=== PATIENT | male | born 1980 | race Caucasian/White ===

== ENCOUNTER 2020-01-09 18:29 | Observation (INO) | payer OTHER, SELFPAY ==
[2020-01-09] VITALS (11 sets, daily range): BP systolic 124–140; BP diastolic 76–93; PULSE 63–92; RESP 16–17; TEMP 36.3–37.2; O2SAT 95–100; BMI 26.1; BMI 25.8
--- NOTE | 2020-01-09 | APP_PTH ---
PATIENT: RENY DURBIN LOC: MS3 U#:[id number] AGE/SX: 39/M ROOM: MT314 RE01/09/[address]: Dr. Harriet Marley MD : 1980 BED: 1 DIS: 01/10/2020 SPEC #: [id number] RECD: 01/12/20 07:37 STATUS: LUCERO REQ #: [id number] AMIRA: 01/09/20 00:[address]: Harriet Marley DEPT: SURGICAL PATHOLOGY RECD BY: Noam Small ENTERED: 01/12/20 09:47 SP TYPE: APPENDIX OTHR DR: Dr. Mansoor Basurto III, MD Tissues: Appendix, NOS Procedures: Surgery Specimen Level III HEADER OPERATION: Laparoscopic appendectomy PRE-OP DIAGNOSIS: Appendicitis TISSUE SUBMITTED: Appendix MICROSCOPIC DIAGNOSIS Appendix, appendectomy: Acute appendicitis. AM:chen 01/13/20 MICROSCOPIC DESCRIPTION Slides are reviewed. GROSS DESCRIPTION Received is one container labeled with the patient's name and designated appendix. The specimen consists of an appendix measuring 7 cm in length and up to 1 cm in diameter. The serosa is congested. No obvious perforation is identified. The lumen is filled with fecal material. No fecalith is identified. Station Baggage Agent sections are submitted in one cassette. / AM:chen 01/12/20 TC:2 CPT: 45564
--- NOTE | 2020-01-09 18:51 | ED.VIS.GEN ---
History of Present Illness Chief Complaint: Abd Pain Informant: Patient Onset: Today Narrative: Patient states that today just before noon he began to have a right lower quadrant abdominal pain. Then after lunch around mid afternoon he developed sharp pains pinching-like in the upper abdomen. No nausea or vomiting. He does not unsure if he had a bowel movement today. The right lower quadrant pain has been constant and more severe than expected. He has had a similar pain for a few hours once a month for the past couple months. It always go away. It was not associated with food. He did note some associated testicular pain at the time. He has not had any prior abdominal surgeries. 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 No fever or rashes. No history of kidney stones. Past Medical History - Allergies and Home Meds Allergies/Adverse Reactions: Allergies Iodinated Contrast Media [CONTRASTS] Allergy (Verified 01/09/20 18:30) Hives Smoking Status: Never smoker Review of Systems General: Denies: Chills, Fever, Sweats Eyes: Denies: Visual changes - bilaterally, Diplopia ENT: Denies: Rhinorrhea, Sore throat Cardiovascular: Denies: Chest pain, Palpitations Respiratory: Denies: Dyspnea, Cough, Dyspnea on exertion Gastrointestinal: Reports: Abdominal pain. Denies: Nausea, Vomiting, Diarrhea, Melena, Hematochezia Genitourinary: Denies: Dysuria, Hematuria, Frequency Musculoskeletal: Denies: Back pain, Extremity Pain Skin: Denies: Rash, Wounds Neurological: Denies: Headache, Weakness, Numbness Physical Exam Vital Signs/Narrative: Vital Signs Temp Pulse Resp BP Pulse Ox 01/09/20 18:30 98.1 F 69 17 138/93 H 98 Inital Vital Signs reviewed: Yes General: Well nourished, Well developed, No Acute Distress Head: Normocephalic, Atraumatic Eyes: Perrl, EOMI ENT: Moist mucous membranes, No rhinorrhea Neck: Supple, Nontender Cardiovascular: Regular rate, Regular rhythm, No murmurs Respiratory: No distress, CTA bilaterally, Chest nontender Abdomen: Soft, Nondistended, Normal bowel sounds, Tender - Patient has tenderness to palpation in the low right lower quadrant. No guarding or rebound. Normal bowel sounds.. Negative for: Guarding, Rebound tenderness Back: Nontender, Normal Inspection Extremities: Nontender, No edema Skin: Normal color, No rash Neurological: Alert, Oriented x3, Cranial nerves II-XII grossly intact, Normal Strength, Normal Sensation Psychological: Normal affect, Normal Mood Diagnostic/Tx/Re-eval Laboratory Last Values WBC 12.8 K/mm3 (4.4-11.0) H 01/09/20 18:50 RBC 4.86 M/mm3 (4.6-6.2) 01/09/20 18:50 Hgb 15.1 g/dL (13.0-16.5) 01/09/20 18:50 Hct 45.3 % (40-54) 01/09/20 18:50 MCV 93.2 fL (80-94) 01/09/20 18:50 MCH 31.1 pg (27.0-32.0) 01/09/20 18:50 MCHC 33.3 g/dL (32-36) 01/09/20 18:50 RDW Std Deviation 42.7 fl (35.1-43.9) 01/09/20 18:50 RDW Coeff of Jean-Pierre 12.6 % (11.6-14.6) 01/09/20 18:50 Plt Count 193 K/mm3 (150-450) 01/09/20 18:50 MPV 11.9 fl (6.2-12.0) 01/09/20 18:50 Immature Gran % (Auto) 0.200 % (0.0-0.9) 01/09/20 18:50 Neut % (Auto) 74.1 % (47-70) H 01/09/20 18:50 Lymph % (Auto) 16.1 % (19-41) L 01/09/20 18:50 [place] % (Auto) 6.2 % (0-10) 01/09/20 18:50 Eos % (Auto) 2.6 % (0-5) 01/09/20 18:50 Baso % (Auto) 0.8 % (0-1) 01/09/20 18:50 Absolute Neuts (auto) 9.5 X10^3/uL (2.0-7.7) H 01/09/20 18:50 Absolute Lymphs (auto) 2.06 X10^3/uL (0.83-4.51) 01/09/20 18:50 Nucleated RBC % 0 % (0-5) 01/09/20 18:50 Sodium 140 mmol/L (136-145) 01/09/20 18:50 Potassium 4.1 mmol/L (3.5-5.1) 01/09/20 18:50 Chloride 105 mmol/L (98-107) 01/09/20 18:50 Carbon Dioxide 29.0 mmol/L (21.0-32.0) 01/09/20 18:50 Anion Gap 6 (5-15) 01/09/20 18:50 BUN 15 mg/dL (7-18) 01/09/20 18:50 Creatinine 0.89 mg/dL (0.70-1.30) 01/09/20 18:50 Estim Creat Clear Calc 115.06 ml/min 01/09/20 18:50 Est GFR (MDRD) Af Amer 122 mL/min (>60) 01/09/20 18:50 Est GFR (MDRD) Non-Af 101 mL/min (>60) 01/09/20 18:50 BUN/Creatinine Ratio 16.9 RATIO (10-20) 01/09/20 18:50 Glucose 95 mg/dL (74-106) 01/09/20 18:50 Calcium 10.1 mg/dL (8.5-10.1) 01/09/20 18:50 Total Bilirubin 0.50 mg/dL (0.20-1.00) 01/09/20 18:50 AST 19 U/L (15-37) 01/09/20 18:50 ALT 47 U/L (16-61) 01/09/20 18:50 Alkaline Phosphatase 99 U/L (45-117) 01/09/20 18:50 Total Protein 8.1 g/dL (6.4-8.2) 01/09/20 18:50 Albumin 4.4 g/dL (3.2-5.0) 01/09/20 18:50 Globulin 3.7 g/dL (2.2-4.2) 01/09/20 18:50 Albumin/Globulin Ratio 1.2 RATIO (0.9-2.4) 01/09/20 18:50 Lipase 60 U/L (73-393) L 01/09/20 18:50 Urine Color Yellow (Yellow) 01/09/20 19:50 Urine Clarity Clear (Clear) 01/09/20 19:50 Urine pH 6.0 (5.0 - 8.0) 01/09/20 19:50 Ur Specific [place] 1.020 (1.002-1.030) 01/09/20 19:50 Urine Protein Negative mg/dl (Negative) 01/09/20 19:50 Urine Glucose (UA) Normal mg/dl (Normal) 01/09/20 19:50 Urine Ketones Negative mg/dl (Negative) 01/09/20 19:50 Urine Occult Blood Negative /ul (Negative) 01/09/20 19:50 Urine Nitrite Negative (Negative) 01/09/20 19:50 Urine Bilirubin Negative mg/dL (Negative) 01/09/20 19:50 Urine Urobilinogen Normal mg/dl (Normal) 01/09/20 19:50 Ur Leukocyte Esterase Negative /ul (Negative) 01/09/20 19:50 Clinical Impression(s) from Imaging Studies Abdomen/Pelvis CT 01/09/20 19:32 IMPRESSION: Normal unenhanced CT of the abdomen and pelvis. Electronically Signed: Kita Jimenez, at 20:00 EDT Tel , Service support , ADDENDUM: 01/09/202024 - Medical Decision Making He received morphine Zofran and IV fluids. He is kept n.p.o. Due to an contrast allergy, IV contrast was not used. CT is consistent with acute appendicitis. The patient received Zosyn and Dr. Marley was contacted. She will be up to evaluate the patient ED Disposition - Plan for ED Patient: Disposition: Acute Care Hospital [facility] Diagnosis: Acute appendicitis
[2020-01-09 19:08] LABS: Absolute Lymphocyte Count 2.06 X10^3/uL (0.83-4.51); Absolute Neutrophil Count 9.5 X10^3/uL (2.0-7.7); Basophil% 0.8 % (0-1); Eosinophil# 0.33 X10^3/uL; Eosinophils% 2.6 % (0-5); Hematocrit 45.3 % (40-54); Hemoglobin 15.1 g/dL (13.0-16.5); Lymphocyte # 2.06 X10^3/ul (4.0); Lymphocyte % 16.1 % (19-41); Mean Corp Hgb Conc 33.3 g/dL (32-36); Mean Corpuscular Hgb 31.1 pg (27.0-32.0); Mean Corpuscular Volume 93.2 fL (80-94); Mean Platelet Vol. 11.9 fl (6.2-12.0); Monocyte# 0.79 X10^3/uL; Monocyte% 6.2 % (0-10); NRBC Flagged by Analyzer 0 % (0-5); Neutrophil # 9.52 X10^3/uL (2.7-7.7); Neutrophil % 74.1 % (47-70); Platelet Count 193 K/mm3 (150-450); RBC Distribution Width CV 12.6 % (11.6-14.6); RBC Distribution Width SD 42.7 fl (35.1-43.9); Red Blood Count 4.86 M/mm3 (4.6-6.2); White Blood Count 12.8 K/mm3 (4.4-11.0)
[2020-01-09] MEDS: 0.9% Normal Saline 1,000 ML 125 ML IV (19:15)
[2020-01-09] MEDS: Ondansetron 4 MG/2 ML Vial IV (19:15)
[2020-01-09] MEDS: Morphine 2 MG/ML Syringe IV (19:15)
--- NOTE | 2020-01-09 19:32 | CT_ITS ---
STUDY: CT ABDOMEN AND PELVIS WITHOUT CONTRAST REASON FOR EXAM: Male, 39 years old. Right sided abdominal pain RADIATION DOSAGE (If Supplied By Facility): CTDIvol = ( 7.07 ) mGy, DLP = ( 384.97 ) mGycm TECHNIQUE: Transaxial images were obtained from the dome of the diaphragm to the symphysis pubis without oral contrast, and without intravenous contrast. Sagittal and coronal images were reconstructed. Individualized dose optimization techniques were used for this CT. COMPARISON: None. FINDINGS: The visualized lung bases are unremarkable. The visualized portions of the heart are within normal limits. Normal liver. Normal gallbladder and extrahepatic biliary system. Normal spleen. Normal pancreas. Normal bilateral adrenal glands. Normal right kidney. Normal left kidney. Normal visualized stomach. Normal small intestine. Normal colon. The appendix is visualized and appears normal. Normal abdominal aorta. Normal inferior vena cava. Normal retroperitoneum. Normal urinary bladder. Normal abdominal wall. There are degenerative changes in multiple endplates. CT/Abdomen/Pelvis without Cont IMPRESSION: Normal unenhanced CT of the abdomen and pelvis. Electronically Signed: Kita Jimenez, at 20:00 EDT Tel , Service support ,
[2020-01-09 19:38] LABS: ALB/GLOB Ratio 1.2 RATIO (0.9-2.4); AST(SGOT) 19 U/L (15-37); Alanine Aminotransfer ALT/SGPT 47 U/L (16-61); Albumin, Serum 4.4 g/dL (3.2-5.0); Alkaline Phosphatase 99 U/L (45-117); Anion Gap 6 (5-15); BUN 15 mg/dL (7-18); BUN/Creat Ratio 16.9 RATIO (10-20); Calcium,Total 10.1 mg/dL (8.5-10.1); Chloride 105 mmol/L (98-107); Creatinine, Serum 0.89 mg/dL (0.70-1.30); EST Glomerular Filtration Rate 101 mL/min (>60); Est Glom Filt Rate - Afr Amer 122 mL/min (>60); Estimated Creatinine Clearance 115.06 ml/min; Globulin 3.7 g/dL (2.2-4.2); Glucose 95 mg/dL (74-106); Lipase 60 U/L (73-393); Potassium 4.1 mmol/L (3.5-5.1); Protein, Total 8.1 g/dL (6.4-8.2); Sodium Level 140 mmol/L (136-145)
[2020-01-09 19:55] LABS: Mucous, Urine 0 SEEN /hpf (<or=2+); Red Blood Cells-Urine 0 SEEN /hpf (0-5); Squamous Epithelial Cells - UA 0 SEEN /hpf (0-5); White Blood Cells 0 SEEN /hpf (0-5)
[2020-01-09 20:07] LABS: Color, Urine Yellow (Yellow); Glucose, Dipstick Normal (Normal); Ketone-Dipstick Negative (Negative); Leukocyte Esterase-Dipstick Negative /ul (Negative); Nitrite-Dipstick Negative (Negative); Occult Blood-Urine Negative /ul (Negative); Protein-Dipstick Negative (Negative); Urine Bilirubin Dipstick Negative (Negative); Urine Clarity Clear (Clear); Urine Urobilinogen Normal (Normal)
[2020-01-09 20:24] LABS: Bacteria RARE /hpf (None Seen)
--- NOTE | 2020-01-09 21:02 | PCM.HP.BLA ---
History and Physical Date of Admission: 01/09/20 Chief Complaint: abdominal pain History of Present Illness: 39 y/o otherwise healthy WM presents with RLQ abdominal pain. He states that he has had this in the past, but the pain resolved spontaneously. This present pain did not and therefore patient presented to ED. This present pain began around noon today. Found to have WBC of 12.8K with left shift of differential. CT scan findings of appendicitis without perforation. Past Medical History: elevated cholesterol Past Surgical History: Tonsillectomy jaw surgery Medications: simvastatin allergy medication MVI Allergies: iodinated contrast media Social history: TOB use denies Review of Systems: General - denies fevers Cardiovascular denies chest pain, denies history of heart attack Pulmonary denies shortness of breath, denies coughing up blood Gastrointestinal as per HPI, denies hematemesis Neurological denies seizures, denies history of stroke Genitourinary denies burning with urination, denies blood in urine Hematological denies spontaneous/prolonged bleeding Skin denies open non healing wounds Musculoskeletal no new muscle/joint pain Endocrine denies diabetes Psychological denies hallucinations Physical examination: Vital signs Temp 98.9F HR 68 BP 135/88 RR 16 General WD/WN WM in no apparent distress, alert and oriented, not septic appearing HEENT Normocephalic. EOM intact with sclera clear and no icterus noted. Wearing glasses. Neck is supple with no jugular venous distention noted. Trachea is midline. Lungs no labored breathing noted, such as retractions. No cough heard. Heart regular rate. Abdomen soft but tender in the right lower quadrant with rebound tenderness, hypoactive bowel sounds Extremities no calf tenderness noted. No pitting edema noted. Genitourinary/Rectal deferred Skin normal skin integrity. Neurological non focal. Psychological normal affect, patient is calm and appropriate IMPRESSION: appendicitis by CT scan leukocytosis DISCUSSION/PLAN: I have discussed the above with the patient and his who is present with him I have offered the patient the procedure of laparoscopic appendectomy. I have explained the procedure to the patient. I have counseled the patient as to the risks of the procedure, including but not limited to: infection, bleeding, injury to any blood vessels/nerves, scar tissue, injury to any intrabdominal organs, injury to kidney/ureters, injury to bowel/bladder, intraabdominal abscess/bleeding, hernias at incisional sites, wound infections, possible open procedure, complications of anesthesia, postoperative pneumonia/cardiac problems/blood clots etc. the patient understands. Given the present COVID crisis, I have also counseled patient that he would be at increased risk for elvira COVID or having COVID related complications, he understands. He wishes to proceed. I have answered all questions to the patient?s satisfaction and the patient has no further questions.
[2020-01-09] MEDS: Lactated Ringers 1,000 ML 75 ML IV (21:05)
--- NOTE | 2020-01-09 21:39 | ED.RN ---
report given to OR nurse [place]. They would like COVID swab done, not wait for results and bring pt to OR.
[2020-01-09] MEDS: Bupiv/Epi 0.25% 30 ML Vial (22:44)
--- NOTE | 2020-01-09 22:46 | PCM.OPRPT ---
Report of Operation Date of Procedure: 01/09/20 Pre-Operative Diagnosis: acute appendicitis Post-Operative Diagnosis: same Surgery/Procedure Performed:: laparoscopic appendectomy Description of Surgical Findings:: acute appendicitis - not ruptured, cloudy fluid in pelvis - irrigated and aspirated out Type of Anesthesia:: General Anesthesiologist: Alejandra Owens Specimen's removed: appendix Estimated Blood Loss (mL): < 5 ml Fluids Replaced: 1000 ml RL Description of Procedure: After informed consent was obtained, the patient was brought into the Operating Room. Appropriate time out protocol was followed. He was then placed in the supine position on the operating table. The patient was then placed under general anesthesia. The patient?s abdomen was then prepped with a sterile surgical skin preparation and sterile surgical drapes were placed. The infraumbilical skin fold was grasped with penetrating clamps and the skin and subcutaneous tissues were infiltrated with 0.25% marcaine with epinephrine. A skin incision was then made. A Veress needle was then inserted into the intraabdominal cavity and checked to be in the proper position with a normal saline drop test. A CO2 pneumoperitoneum was then created. Once this was achieved, the Veress needle was removed and a 5 mm trocar was placed in its stead. A 5 mm laparoscope was then inserted into the trocar. Careful examination of the intraabdominal contents was then done. There was no evidence of injury to any internal organs from placement of the Veress needle or the trocar. Under direct visualization, a 12mm suprapubic trocar and a 5mm left lower quadrant trocar was then placed into the intraabdominal cavity. The skin and subcutaneous tissues at these sites were first infiltrated with 0.25% marcaine with epinephrine. Attention was then directed to the right lower quadrant. The appendix was visualized. The tip of the appendix was adherent to the anterior abdominal wall. There were inflammatory changes of the appendix consistent with appendicitis. There was no evidence of perforation. The mesentery of the appendix was taken down by cauterizing the tissue from the free edge to the base of the appendix with the Harmonic scalpel. Once the base of the appendix was freed of surrounding tissues, then the linear gastrointestinal stapling device was brought into the abdominal cavity via the 12mm port and placed across the base of the appendix. The stapling device was fired, thus stapling across the base of the appendix and transecting it simultaneously. The appendix was then placed in an Endobag and this was brought out through the suprapubic trocar. The appendix was then forwarded to Pathology for analysis. The appendiceal stump was carefully examined. There was no evidence of any active bleeding or fecal leakage. Surgicel was placed on the staple line for minimal oozing. The surrounding tissues were also examined and there was no evidence of any active bleeding or fecal/bile leakage. There was cloudy fluid in the pelvis. This was aspirated out and the area irrigated and all irrigant aspirated out. The intraabdominal cavity was examined and there was no evidence of further inflammation or tissue abnormality. There was no evidence of any peritoneal fluid. The site of the staple line of the appendiceal stump was examined and no bleeding was noted. The CO2 pneumoperitoneum was released and all trocars were removed intact. The suprapubic fascia was reapproximated with a figure-of-8 vicryl suture. All skin incisions were reapproximated with monocryl suture. Cavilon and steristrips were applied to reinforce skin closure and proper sterile dressings were placed. The patient was then extubated and brought to the Recovery Room in stable condition. - Complications none noted - Admit VTE Documentation VTE Present on Admission: Yes VTE Mechan Device Prophylaxis: SCD's
--- NOTE | 2020-01-09 22:48 | DCINST_ITS ---
Discharge Diet: No Restrictions - avoid carbonated beverages drink plenty of fluids Discharge Activity: Return to Normal Activity, May not drive while taking narcotic pain medications. Lifting Restrictions: no lifting greater than 20 pounds for two weeks Call your doctor if your incision/area has: Continuous Slow Oozing, Foul Smelling Discharge Call your doctor if you observe: Fever of 101 or Higher Additional Dressing/Incision Instructions:: Leave dressings in place. may get wet in shower. do not soak - no tub baths/swimming Medications to take at Discharge Fexofenadine HCl [Sharon Allergy] 60 mg PO DAILY 01/09/20 Multivitamin [Daily Multiple Vitamin] 1 ea PO DAILY 01/09/20 Simvastatin [Zocor] 40 mg PO QHS 01/09/20 Allergies/Adverse Reactions: Allergies Iodinated Contrast Media [CONTRASTS] Allergy (Verified 01/09/20 18:30) Hives Primary Care Physician: Mansoor Basurto III, MD [Primary Care Provider] - Test Results: Test results from this visit will be discussed in further detail at your follow- up appointment, if applicable. Please Follow Up With: Harriet Marley MD - call When: to be seen via virtual visit in 10-14 days
[2020-01-10 01:49] VITALS: BP 116/82; PULSE 95; RESP 16; TEMP 36.8; O2SAT 96
[2020-01-10] MEDS: Lactated Ringers 1,000 ML 75 ML IV (02:06)
[2020-01-10 03:49] VITALS: BP 123/83; PULSE 94; RESP 16; TEMP 36.9; O2SAT 96
[2020-01-10 09:04] VITALS: BP 147/95; PULSE 69; RESP 16; TEMP 36.5; O2SAT 98
== END 2020-01-10 09:00 | disposition home or self-care (01) ==
LOC: ED 20:22 → MS3 01-10 08:29
PROVIDERS: Admitting Provider Surgery; Emergency Provider Emergency Medicine; PCP Family Medicine; Visit Provider Surgery
PROC: 0DTJ4ZZ Resection of Appendix, Percutaneous Endoscopic Approach (ICD-10-PCS; CPT 44970; principal; 2020-01-09 21:30)
DX: K35.80 Unspecified acute appendicitis (principal); E78.00 Pure hypercholesterolemia, unspecified; Z79.899 Other long term (current) drug therapy
CPT/HCPCS: 00840; 44970; 74176; 80053; 81001; 83690; 85025; 87635; 88304; 96361; 96374; 96375; 99285; G2023; J7030; J7120; A4216; J2405; U0003

== ENCOUNTER 2025-03-18 05:56 | Day surgery (SDC) | payer OTHER, SELFPAY ==
[2025-03-18] VITALS (7 sets, daily range): BP systolic 119–140; BP diastolic 74–96; PULSE 57–67; RESP 16; TEMP 36.4–36.9; O2SAT 94–99; BMI 26.9
--- OUTSIDE RECORDS SUMMARY | 2025-03-18 06:00 | XMS RPT_ITS | CCD ---
Author Organization [facility] Care Team Providers Care Poker In Name Role Phone Khloe Salazar MD Primary Care Provider [phone] Khloe Salazar MD Primary Care Provider [phone] Argenis NEWSPAPER STUFFER.Nataliia PASTOR Unavailable Renate Camara PA-C Unavailable [phone] Knyazan NEWSPAPER STUFFER.Nataliia PASTOR Unavailable Renate Camara PA-C Unavailable KHLOE SALAZAR Primary Care Unavailable KHLOE SALAZAR Attending Unavailable KHLOE SALAZAR Primary Care Unavailable KHLOE SALAZAR Referring Unavailable KHLOE SALAZAR Primary Care Unavailable AMINTA VILLARREAL Referring Unavailable KHLOE SALAZAR Primary Care Unavailable KHLOE SALAZAR Referring Unavailable KHLOE SALAZAR Primary Care Unavailable KHLOE SALAZAR Referring Unavailable KHLOE SALAZAR Primary Care Unavailable KHLOE SALAZAR Primary Care Unavailable Zaire Humphrey Attending Unavailable Allergies Allergy Classification Reported Allergen(s) Allergy Type Date of Onset Reaction(s) Facility (10 sources) Iodine; Translations: [IODINE] Drug Allergy 07-04-2023 [facility] Work Phone: (1 source) Iodinated Contrast Media Drug allergy (disorder) 07-12-2021 [facility] Repository Medications Current Medications Medication Drug Class(es) Dates Sig (Normalized) Sig (Original) doxycycline monohydrate 100 mg oral tablet (1 source) Tetracycline-clas s Drug Start: 07-01-2024 End: 07-08-2024 take 1 tablet by mouth twice daily doxycycline monohydrate 100 mg tablet Indications: Skin infection Take 1 tablet by mouth two times a day for 7 days. 14 tablet 07/01/2024 07/08/2024 Active fexofenadine (9 sources) Histamine-1 Receptor Antagonist FEXOFENADINE HCL (RADHA ORAL) Take by mouth as directed. Active FEXOFENADINE HCL (RADHA ORAL) Take by mouth as directed. 0 Active Comment on above: Take by mouth as dir ected. fluticasone propionate 0.05 mg/actuat metered dose nasal spray (9 sources) Corticosteroid Start: take 2 spray(s) by mouth once daily fluticasone (FLONASE) 50 mcg/actuation nasal spray Use 2 Sprays in each nostril once daily. Rinse mouth after use. 12/01/2020 Active Comment on above: Use 2 Sprays in each nostril once daily. Rinse mouth after use. MULTIVIT-MINERALS/FE RROUS FUM (MULTI VITAMIN ORAL) (9 sources) MULTIVIT-MINERAL S/F ERROUS FUM (MULTI VITAMIN ORAL) Take by mouth once daily. Active MULTIVIT-MINERAL S/FERROUS FUM (MULTI VITAMIN ORAL) Take by mouth once daily. 0 Active Comment on above: Take by mouth once d aily. simvastatin 40 mg oral tablet (10 sources) HMG-CoA Reductase Inhibitor Start: take 0.5 tablet by mouth once daily at bedtime simvastatin (ZOCOR) 40 mg tablet Take 0.5 tablets by mouth daily at bedtime. 45 tablet 4 07/09/2024 Active Start: 06-27-2022 End: 07-04-2023 take 0.5 tablet by mouth once daily at bedtime simvastatin (ZOCOR) 40 mg tablet Take 0.5 tablets by mouth daily at bedtime. 45 tablet 4 07/04/2023 Active Comment on above: Take 0.5 tablets by mouth daily at bedtime. Problems Active Problems Problem Classification Problem Date Documented Da te Episodic/Chronic Disorders of lipid metabolism (11 sources) Mixed hyperlipidemia; Translations: [Mixed hyperlipidemia] Onset: 08-16-2015 07-04-2023 Chronic Open wounds of extremities (1 source) Open wound of finger; Translations: [Unspecified open wound of unspecified finger without damage to nail, initial encounter] 06-21-2024 Episodic Other circulatory disease (1 source) Elevated blood-pressure reading without diagnosis of hypertension; Translations: [Elevated blood-pressure reading, without diagnosis of hypertension] 07-06-2023 Episodic Other inflammatory condition of skin (10 sources) Psoriasis; Translations: [Psoriasis, unspecified] Onset: 08-20-2018 07-04-2023 Chronic Other nutritional; endocrine; and metabolic disorders (1 source) Hypercalcemia; Translations: [Hypercalcemia] 07-14-2024 Chronic Other nutritional; endocrine; and metabolic disorders (1 source) Hypercalcemia; Translations: [Hypercalcemia] Onset: 08-18-2024 Chronic Other upper respiratory disease (10 sources) Allergic rhinitis; Translations: [Allergic rhinitis, unspecified] Onset: 08-16-2015 07-04-2023 Chronic Residual codes; unclassified (2 sources) Swelling; Translations: [Edema, unspecified] 07-01-2024 Episodic Skin and subcutaneous tissue infections (1 source) Infection of skin; Translations: [Local infection of the skin and subcutaneous tissue, unspecified] 07-01-2024 Episodic Unclassified (1 source) Patient encounter status 01-07-2025 Past or Other Problems Problem Classification Problem Date Documented Da te Episodic/Chronic Immunizations and screening for infectious disease (1 source) Encounter for immunization; Translations: [Encounter for immunization] Onset: 07-09-2024 Episodic Other screening for suspected conditions (not mental disorders or infectious disease) (17 sources) Patient encounter status; Translations: [Encounter for screening for diabetes mellitus] Onset: 06-15-2021 07-04-2023 Episodic Residual codes; unclassified (1 source) Edema, unspecified; Translations: [Swelling] Onset: 07-01-2024 Episodic Results Test Name Value Interpretation Reference Range Facility [facility] 01-13-2025 [facility] Telephone [facility] RENY GONZALES ([id number]) 1980 M Date Time Provider Department 01/13/25 KHLOE SALAZAR [facility] During your visit today, we recorded the following information about you: Katelyn Robertson 01/13/2025 11:22 AM Signed Patient called requesting to have the Screening for colon cancer [Z12.11] Fax to [facility] - Dr Humphrey Please advise Oumar Villarreal MA 01/13/2025 2:00 PM Signed This was faxed to Dr. Humphrey on 01/07/2025. Oumar Villarreal MA Contacted patient and let him know. Gave him Dr. Humphrey's number and re-faxed. Oumar Villarreal MA Allergies As of Date: 01/13/2025 Noted Allergy Reaction CONTRAST DYE (IODINE) 07/04/2023 4 - Hives Date Reviewed: 07/09/2024 Reviewed by: Khloe Salazar MD - Fully Assessed Reason for Visit: Orders [381] Cmt: Pt requesting to Fax to Dr Humphrey @ [facility] Prescriptions as of 01/13/2025 - simvastatin (ZOCOR) 40 mg tablet Take 0.5 tablets by mouth daily at bedtime. - fluticasone (FLONASE) 50 mcg/actuation nasal spray Use 2 Sprays in each nostril once daily. Rinse mouth after use. - FEXOFENADINE HCL (RADHA ORAL) Take by mouth as directed. - MULTIVIT-MINERALS/FERR OUS FUM (MULTI VITAMIN ORAL) Take by mouth once daily. Problem List As Of Date 01/13/2025 Noted Resolved Mixed hyperlipidemia [E78.2] 08/16/2015 Allergic rhinitis [J30.9] 08/16/2015 Psoriasis [L40.9] 08/20/2018 Well adult exam [Z00.00] 06/15/2021 Encounter for screening for diabetes mellitus [*06/15/2021 Screening for colon cancer [Z12.11] 01/07/2025 Encounter Status:Closed by OUMAR VILLARREAL on 01/13/25 [facility] 01-07-2025 [facility] Telephone ([facility] KOSTOHRYZ,RENY ([id number]) 1980 M Date Time Provider Department 01/07/25 KHLOE SALAZAR During your visit today, we recorded the following information about you: Edilberto Rodriguez LPN 01/07/2025 10:38 AM Signed Pt at office today advising that he will be turning 45 in Feb. Pt is wanting to have colonoscopy done. Pt states he was to let PCP know. Pt is wanting to have colonoscopy through Dr Milagro. Not sure if it is too early to put in consult. ELLEN Calle Jeffrey A, MD 01/07/2025 1:01 PM Signed Order placed. Oumar Villarreal MA 01/07/2025 1:31 PM Signed Faxed. Oumar Villarreal MA Allergies As of Date: 01/07/2025 Noted Allergy Reaction CONTRAST DYE (IODINE) 07/04/2023 4 - Hives Date Reviewed: 07/09/2024 Reviewed by: Khloe Salazar MD - Fully Assessed Reason for Visit: Consult [502] Referral for colonoscopy [Other] Primary Visit Diagnosis:Screening for colon cancer [Z12.11] Order(s):CONSULT TO GASTROENTEROLOGY [9010] Order #: [id number]: 1 FUTURE Prescriptions as of 01/07/2025 - simvastatin (ZOCOR) 40 mg tablet Take 0.5 tablets by mouth daily at bedtime. - fluticasone (FLONASE) 50 mcg/actuation nasal spray Use 2 Sprays in each nostril once daily. Rinse mouth after use. - FEXOFENADINE HCL (RADHA ORAL) Take by mouth as directed. - MULTIVIT-MINERALS/FERR OUS FUM (MULTI VITAMIN ORAL) Take by mouth once daily. Problem List As Of Date 01/07/2025 Noted Resolved Mixed hyperlipidemia [E78.2] 08/16/2015 Allergic rhinitis [J30.9] 08/16/2015 Psoriasis [L40.9] 08/20/2018 Well adult exam [Z00.00] 06/15/2021 Encounter for screening for diabetes mellitus [*06/15/2021 Screening for colon cancer [Z12.11] 01/07/2025 Encounter Status:Closed by OUMAR VILLARREAL on 01/07/[address] [facility] GGT SerPl-cCncon 10-17-2024 Gamma glutamyl transferase [Catalytic activity/Vol] 46 U/L Normal 10-[address] [facility] Comment on above: Order Comment: Speci men Type: BLOOD SPECIMENOrdering Facility: [facility] Address: [address] [place] [address] Performed By: #### 2 4325-3, 2323-2 ####[facility] LABCLIA [id number] [address] [address] [place] Hepatic function 2000 panelo n 10-17-2024 Albumin [Mass/Vol] 4.3 g/dL Normal 3.9-4.9 [facility] Comment on above: Order Comment: Speci men Type: BLOOD SPECIMENOrdering Facility: [facility] Address: [address] [place] [address] Performed By: #### 2 4325-3, 2323-2 ####[facility] LABCLIA [id number] [address] [address] [place] ALP [Catalytic activity/Vol] 95 U/L Normal 38-[address] [facility] Comment on above: Order Comment: Speci men Type: BLOOD SPECIMENOrdering Facility: [facility] Address: [address] [place] [address] Performed By: #### 2 4325-3, 2323-2 ####[facility] LABCLIA [id number] [place] [id number] [place] ALT [Catalytic activity/Vol] 51 U/L Normal 10-[address] [facility] Comment on above: Order Comment: Speci men Type: BLOOD SPECIMENOrdering Facility: [facility] Address: [address] [place] [address] Performed By: #### 2 4325-3, 2323-2 ####[facility] LABCLIA [id number] [address] [address] [place] AST [Catalytic activity/Vol] 28 U/L Normal 14-[address] [facility] Comment on above: Order Comment: Speci men Type: BLOOD SPECIMENOrdering Facility: [facility] Address: [address] [place] [address] Performed By: #### 2 4325-3, 2323-2 ####[facility] LABCLIA [id number] [place] [address] [place] Bilirubin [Mass/Vol] 0.4 mg/dL Normal 0.2-1.3 [facility] Comment on above: Order Comment: Speci men Type: BLOOD SPECIMENOrdering Facility: [facility] Address: [address] [place] [address] Performed By: #### 2 4325-3, 2 ####[facility] LABIA [id number] [address] [place] [facility] Bilirubin.conjugated [Mass/Vol] 0.1 mg/dL Normal <0.[address] [facility] Comment on above: Order Comment: Speci men Type: BLOOD SPECIMENOrdering Facility: [facility] Address: [address] [place] [address] Performed By: #### 2 4325-3, 2323-08 ####[facility] LABIA [id number] [place] [id number] [place] Protein [Mass/Vol] 7.0 g/dL Normal 6.3-8.0 [facility] Comment on above: Order Comment: Speci men Type: BLOOD SPECIMENOrdering Facility: [facility] Address: [address] [place] [address] Performed By: #### 2 4325-3, 2 ####[facility] LABCLIA [id number] [place] [id number] [place] CNPEmma 08-19-2024 [facility] Telephone ([facility]) RENY GONZALES ([id number]) 1980 M Date Time Provider Department 08/19/24 KHLOE SALAZAR During your visit today, we recorded the following information about you: Khloe Salazar MD 08/19/2024 7:31 PM Signed Let patient know his testing for Hep A, B and C were all negative. His repeat liver functions showed that the AST is back to normal and the ALT is reduced and almost normal. I placed order to repeat in a month. His Urine was ok. His repeat calcium was normal. Edilberto Rodriguez LPN 08/20/2024 8:44 AM Signed Patient notified of results and provider's instructions. Patient verbalizes understanding. Pt will repeat lab as instructed. Edilberto Rodriguez LPN Allergies As of Date: 08/19/2024 Noted Allergy Reaction CONTRAST DYE (IODINE) 07/04/2023 4 - Hives Date Reviewed: 07/09/2024 Reviewed by: Khloe Salazar MD - Fully Assessed Reason for Visit: Results [95] Primary Visit Diagnosis:Elevated LFTs [R79.89] Order(s):HEPATIC FUNCTION PNL [SQHFP] Order #: [id number] FUTURE GGT [SQGGT] Order #: [id number] FUTURE Prescriptions as of 08/20/2024 - simvastatin (ZOCOR) 40 mg tablet Take 0.5 tablets by mouth daily at bedtime. - fluticasone (FLONASE) 50 mcg/actuation nasal spray Use 2 Sprays in each nostril once daily. Rinse mouth after use. - FEXOFENADINE HCL (RADHA ORAL) Take by mouth as directed. - MULTIVIT-MINERALS/FERR OUS FUM (MULTI VITAMIN ORAL) Take by mouth once daily. Problem List As Of Date 08/19/2024 Noted Resolved Mixed hyperlipidemia [E78.2] 08/16/2015 Allergic rhinitis [J30.9] 08/16/2015 Psoriasis [L40.9] 08/20/2018 Well adult exam [Z00.00] 06/15/2021 Encounter for screening for diabetes mellitus [*06/15/2021 Encounter Status:Closed by EDILBERTO RODRIGUEZ on 08/20/[address] [facility] Calcium SerPl-mCncon 08-18- 025 Calcium [Mass/Vol] 9.8 mg/dL Normal 8.5-10.2 [facility] Comment on above: Order Comment: Specjayce men Type: BLOOD SPECIMENOrdering Facility: [facility] Address: [address] [place] [address] Performed By: #### 1 7861-6, 2731-8, 78271-6 ####[facility] LABCLIA [id number] [place] [address] [place] HAV IgM Ser Qlon 08-18-2024 HAV IgM Ql (S) Negative Normal Negative [facility] Comment on above: Order Comment: Specjayce martinez Type: BLOOD SPECIMENOrdering Facility: [facility] Address: [address] [place] [address] Result Comment: No e vidence of recent infection with Hepatitis A virus. Performed By: #### 3 1204-1, 5195-3, 34464-9 ####[facility] LABCLIA [id number] [place] [address] [place] HBV core IgM Ser Qlon 2024 HBV core IgM Ql (S) Negative Normal Negative [facility] Comment on above: Order Comment: González martinez Type: BLOOD SPECIMENOrdering Facility: [facility] Address: [address] [place] [address] Result Comment: No e vidence of recent infection with Hepatitis B virus. Should recent infection be suspected, repeat testing may be considered 3-4 weeks after this draw. Performed By: #### 3 1204-1, 5195-3, 12506-4 ####[facility] LABCLIA [id number] [place] [address] [place] HBV surface Ag Ser Qlon 07-31 HBV surface Ag Ql (S) Negative Normal Negative [facility] Comment on above: Order Comment: Speci men Type: BLOOD SPECIMENOrdering Facility: [facility] Address: [address] [place] [address] Performed By: #### 3 1204-1, 5195-3, 85443-5 ####[facility] LABCLIA [id number] [place] [address] [place] HCV RNA MARIBEL+probe Qnon 08-18 HCV RNA MARIBEL+probe Ql Not detected Normal Not detected [facility] Comment on above: Order Comment: Speci men Type: BLOOD SPECIMENOrdering Facility: [facility] Address: [address] [place] [address] Performed By: #### 1 1011-4 ####[facility] LABIA [id number] [place] [address] [place] Hepatic function 2000 panelo n 08-18-2024 Albumin [Mass/Vol] 4.5 g/dL Normal 3.9-4.9 [facility] Comment on above: Order Comment: Speci men Type: BLOOD SPECIMENOrdering Facility: [facility] Address: [address] [place] [address] Performed By: #### 1 7861-6, 2731-8, 85675-9 ####[facility] LABIA [id number] [place] [address] [place] ALP [Catalytic activity/Vol] 98 U/L Normal 38-[address] [facility] Comment on above: Order Comment: Speci men Type: BLOOD SPECIMENOrdering Facility: [facility] Address: [address] [place] [address] Performed By: #### 1 7861-6, 2731-8, 69982-4 ####[facility] LABCLIA [id number] [place] [address] [place] ALT [Catalytic activity/Vol] 59 U/L High 10-[address] [facility] Comment on above: Order Comment: Speci men Type: BLOOD SPECIMENOrdering Facility: [facility] Address: [address] [place] [address] Performed By: #### 1 7861-6, 27308-06, 20741-4 ####[facility] LABCLIA [id number] [address] [address] [place] AST [Catalytic activity/Vol] 34 U/L Normal 14-[address] [facility] Comment on above: Order Comment: Speci men Type: BLOOD SPECIMENOrdering Facility: [facility] Address: [address] [place] [address] Performed By: #### 1 7861-6, 27308-06, 37795-8 ####[facility] LABCLIA [id number] [place] [address] [place] Bilirubin [Mass/Vol] 0.4 mg/dL Normal 0.2-1.3 [facility] Comment on above: Order Comment: Speci men Type: BLOOD SPECIMENOrdering Facility: [facility] Address: [address] [place] [address] Performed By: #### 1 7861-6, 27308-06, 91856-7 ####[facility] LABCLIA [id number] [place] [id number] [place] Bilirubin.conjugated [Mass/Vol] 0.2 mg/dL Normal <0.[address] [facility] Comment on above: Order Comment: Speci men Type: BLOOD SPECIMENOrdering Facility: [facility] Address: [address] [place], [place] [address] Performed By: #### 1 7861-6, 27308-06, 66601-0 ####[facility] LABCLIA [id number] [address] [address] [place] Protein [Mass/Vol] 7.0 g/dL Normal 6.3-8.0 [facility] Comment on above: Order Comment: Speci men Type: BLOOD SPECIMENOrdering Facility: [facility] Address: [address] [place] [address] Performed By: #### 1 7861-6, 2731-8, 60811-7 ####[facility] LABCLIA [id number] [place] [address] [place] PTH-Intact SerPl-mCncon -2 Parathyrin.intact [Mass/Vol] 67 pg/mL High 15-[address] [facility] Comment on above: Order Comment: Speci men Type: BLOOD SPECIMENOrdering Facility: [facility] Address: [address] [place] [address] Performed By: #### 1 7861-6, 2731-8, 47155-6 ####[facility] LABCLIA [id number] [place] [address] [place] Urinalysis complete panel (U )on 08-18-2024 Bacteria LM.HPF (Urine sed) [#/Area] Negative Normal Negative [facility] Comment on above: Order Comment: Speci men Type: URINE SPECIMEN Order[facility] Address: [address] [place] [address] Performed By: #### 2 4356-8 #### [facility] CLIA [id number] [address] [place] [address] [place] Bilirubin Ql (U) Negative Normal Negative [facility] Comment on above: Order Comment: Speci men Type: URINE SPECIMEN Ordering [facility]: [facility] Address: [address] [place] [address] Performed By: #### 2 4356-8 #### [facility] CLIA [id number] [address] [place] [address] [place] Clarity (Unsp spec) Clear Normal Clear [facility] Comment on above: Order Comment: Speci men Type: URINE SPECIMEN Ordering [facility]: [facility] Address: [address] [place] [address] Performed By: #### 2 4356-8 #### [facility] CLIA [id number] [address] [place] [address] [place] Color (U) Yellow Normal Yellow [facility] Comment on above: Order Comment: Speci men Type: URINE SPECIMEN Order[facility]: [facility] Address: [address] [place] [address] Performed By: #### 2 4356-8 #### [facility] CLIA [id number] [address] [place] [address] [place] Epithelial cells LM.HPF (Urine sed) [#/Area] None Seen Normal [facility] Comment on above: Order Comment: Speci men Type: URINE SPECIMEN Ordering [facility]: [facility] Address: [address] [place] [address] Performed By: #### 2 4356-8 #### [facility] CLIA [id number] [address] [place] [address] [place] Glucose Test strip (U) [Mass/Vol] Negative Normal Negative [facility] Comment on above: Order Comment: Speci men Type: URINE SPECIMEN Ordering [facility]: [facility] Address: [address] [place] [address] Performed By: #### 2 4356-8 #### [facility] CLIA [id number] [address] [place] [address] [place] Hemoglobin Ql (U) Negative Normal Negative [facility] Comment on above: Order Comment: Speci men Type: URINE SPECIMEN Ordering [facility]: [facility] Address: [address] [place] [address] Performed By: #### 2 4356-8 #### [facility] CLIA [id number] [address] [place] [address] [place] Hyaline casts (Urine sed) [#/Area] 0 /[LPF] Normal 0 /LPF [facility] Comment on above: Order Comment: Speci men Type: URINE SPECIMEN Ordering Facility: [facility] Address: [address] [place] [address] Performed By: #### 2 4356-8 #### [facility] CLIA [id number] [address] [place] [address] [place] Ketones Ql (U) Negative Normal Negative [facility] Comment on above: Order Comment: Speci men Type: URINE SPECIMEN Ordering Facility: [facility] Address: [address] [place] [address] Performed By: #### 2 4356-8 #### [facility] CLIA [id number] [address] [place] [address] [place] Leukocyte esterase Test strip Ql (U) Negative Normal Negative [facility] Comment on above: Order Comment: Speci men Type: URINE SPECIMEN Ordering Facility: [facility] Address: [address] [place] [address] Performed By: #### 2 4356-8 #### [facility] CLIA [id number] [address] [place] [address] [place] Nitrite Ql (U) Negative Normal Negative [facility] Comment on above: Order Comment: Speci men Type: URINE SPECIMEN Ordering Facility: [facility] Address: [address] [place] [address] Performed By: #### 2 4356-8 #### [facility] CLIA [id number] [address] [place] [address] [place] pH (U) 5.5 [pH] Normal <8.[address] [facility] Comment on above: Order Comment: Speci men Type: URINE SPECIMEN Ordering Facility: [facility] Address: [address] [place] [address] Performed By: #### 2 4356-8 #### [facility] CLIA [id number] [address] [place] [address] [place] Protein (U) [Mass/Vol] Negative Normal Negative [facility] Comment on above: Order Comment: Speci men Type: URINE SPECIMEN Ordering Facility: [facility] Address: [address] [place] [address] Performed By: #### 2 4356-8 #### [facility] [facility] CLIA [id number] [address] [place] [address] [place] RBC LM.HPF (Urine sed) [#/Area] 0-2 /HPF Normal 0-2 /HPF [facility] Comment on above: Order Comment: Speci men Type: URINE SPECIMEN Ordering Facility: [facility] Address: [address] [place] [address] Performed By: #### 2 4356-8 #### [facility] CLIA [id number] [address] [place] [address] [place] Specific gravity (U) [Rel density] 1.029 Normal 1.005-1.[address] [facility] Comment on above: Order Comment: Speci men Type: URINE SPECIMEN Ordering Facility: [facility] Address: [address] [place] [address] Performed By: #### 2 4356-8 #### [facility] CLIA [id number] [address] [place] [address] [place] Urobilinogen Ql (U) 0.2 EU/dL Normal 0.2-1.0 EU/dL [facility] Comment on above: Order Comment: Speci men Type: URINE SPECIMEN Ordering Facility: [facility] Address: [address] [place] [address] Performed By: #### 2 4356-8 #### [facility] CLIA [id number] [address] [place] [address] [place] WBC LM.HPF (Urine sed) [#/Area] 0-5 /HPF Normal 0-5 /HPF [facility] Comment on above: Order Comment: Speci men Type: URINE SPECIMEN Ordering Facility: [facility] Address: [address] [id number] Performed By: #### 2 4356-8 #### [facility] CLIA [id number] [address] [place] [address] [place] [place] [id number] [place] CNPEmma 07-14-2024 CNPN Telephone (FAMPWS) RENY GONZALES ([id number]) 1980 M Date Time Provider Department 07/14/24 [facility] During your visit today, we recorded the following information about you: Khloe Salazar MD 07/14/2024 4:26 PM Signed Let patient know his liver functions were elevated along with his calcium. Labs placed to recheck this in a month. Lipid panel showed Trigs slightly elevated at 165 (goal<150 and typically he is, may of been related to thanksgiving meal)< HDL and LDL were ok. His other labs were ok. Oumar Villarreal MA 07/14/2024 4:49 PM Signed Left message for patient to contact office. ALE Esquivel Sherrie, RN 07/14/2024 4:57 PM Signed Patient returned call and given provider's message below and patient verbalized understanding. Mallory Cardenas RN Allergies As of Date: 07/14/2024 Noted Allergy Reaction CONTRAST DYE (IODINE) 07/04/2023 4 - Hives Date Reviewed: 07/09/2024 Reviewed by: Khloe Salazar MD - Fully Assessed Reason for Visit: Results [95] Primary Visit Diagnosis:Elevated LFTs [R79.89] Other Visit Diagnosis:Hypercalcemi a [E83.52] Order(s):HEP ACUTE PANEL/RNA [SQHACRNA] Order #: [id number] FUTURE HEPATIC FUNCTION PNL [SQHFP] Order #: [id number] FUTURE CALCIUM, TOTAL [SQCA] Order #: [id number] FUTURE PTH INTACT [SQPTHI] Order #: [id number] FUTURE Prescriptions as of 07/14/2024 - simvastatin (ZOCOR) 40 mg tablet Take 0.5 tablets by mouth daily at bedtime. - fluticasone (FLONASE) 50 mcg/actuation nasal spray Use 2 Sprays in each nostril once daily. Rinse mouth after use. - FEXOFENADINE HCL (RADHA ORAL) Take by mouth as directed. - MULTIVIT-MINERALS/FERR OUS FUM (MULTI VITAMIN ORAL) Take by mouth once daily. Problem List As Of Date 07/14/2024 Noted Resolved Mixed hyperlipidemia [E78.2] 08/16/2015 Allergic rhinitis [J30.9] 08/16/2015 Psoriasis [L40.9] 08/20/2018 Well adult exam [Z00.00] 06/15/2021 Encounter for screening for diabetes mellitus [*06/15/2021 Encounter Status:Closed by NEHA CARDENAS on 07/14/24 [facility] CNOVon 07-09-2024 CNOV Office Visit (FAMPWS ) TOYARENY MATUTE ([id number]) 1980 M Date Time Provider Department 07/09/24 4:20 PM [facility] During your visit today, we recorded the following information about you: Pulse Respiration Blood pressure Weight 70/minute 16/minute 122/82 86.2 kg Khloe Salazar MD 07/09/2024 7:20 PM Signed Chief Complaint Patient presents with: Physical HPI Reny Christensenronitviolette is a 44 year old male who presents here today for Physical. Patient with hx of hyperlipidemia, psoriasis, allergies, and those as below. Patient has been doing well. No new issues or concerns. Allergies managed by taking radha. Past medical history, appointments, medications, allergies reviewed. Previous Medical History PAST MEDICAL HISTORY Diagnosis Date Allergic rhinitis 08/16/2015 Mixed hyperlipidemia 08/16/2015 Psoriasis 08/20/2018 Well adult exam 06/15/2021 Last done: 06/15/2021 Previous Surgical History PAST SURGICAL HISTORY Procedure Laterality Date APPENDECTOMY 01/09/2020 PAST SURGICAL HISTORY OF wire broken jaw Family History FAMILY HISTORY Problem Relation Age of Onset Lipids Mother MVA 2018 Hypertension Father Lipids Father Lipids Brother Lipids Brother Breast Cancer Maternal Grandmother Prostate Cancer No Family History Colon Cancer No Family History Ovarian cancer No Family History Patient Allergies ALLERGIES Allergen Reactions Contrast Dye [Iodin* Hives Current Medications Current Outpatient Medications on File Prior to Visit Medication Sig simvastatin (ZOCOR) 40 mg tablet Take 0.5 tablets by mouth daily at bedtime. fluticasone (FLONASE) 50 mcg/actuation nasal spray Use 2 Sprays in each nostril once daily. Rinse mouth after use. FEXOFENADINE HCL (RADHA ORAL) Take by mouth as directed. MULTIVIT-MINERALS/FERR OUS FUM (MULTI VITAMIN ORAL) Take by mouth once daily. No current facility-administered medications on file prior to visit. Social History Social History Tobacco Use Smoking status: Never Smokeless tobacco: Never Vaping Use Vaping status: Never Used Substance Use Topics Alcohol use: Yes Alcohol/week: 3.0 standard drinks of alcohol Types: 3 Cans of beer per week Comment: occasionally (beer or liquor) Drug use: No Review of Symptoms REVIEW OF SYSTEMS GENERAL: No weight loss, malaise or fevers HEENT: Negative for frequent or significant headaches, No changes in hearing or vision, no nose bleeds or other nasal problems NECK: Negative for lumps, goiter, pain and significant neck swelling RESPIRATORY: Negative for cough, hemoptysis, wheezing, COPD, dyspnea or shortness of breath CARDIOVASCULAR: Negative for chest pain, leg swelling, hypertension, CHF or palpitations GI: No nausea, vomiting, or diarrhea and No heartburn or reflux symptoms : No history of dysuria, frequency or blood MUSCULOSKELETAL: Negative for joint pain or swelling, back pain or muscle pain SKIN: Negative for lesions, rash, and itching PSYCH: Negative for sleep disturbance, mood disorder and recent psychosocial stressors HEMATOLOGY/LYMPHOLOGY: Negative for prolonged bleeding, bruising easily or swollen nodes ENDOCRINE: Negative for cold or heat intolerance, polyuria, polydipsia and goiter NEURO: No history of headaches, syncope, paralysis, seizures or tremors EXAM: BP 124/90 Pulse 70 Resp 16 Wt 86.2 kg (190 lb) BMI 26.88 kg/m? BP 122/82 Pulse 70 Resp 16 Wt 86.2 kg (190 lb) BMI 26.88 kg/m? Last 5 Encounter Wt Readings: Date: Wt: 07/09/2024 86.2 kg (190 lb) 07/01/2024 87.7 kg (193 lb 5.5 oz) 06/21/2024 87.4 kg (192 lb 10.9 oz) 07/25/2023 88.5 kg (195 lb) 07/04/2023 86.2 kg (190 lb) General Appearance: Well appearing, alert, in no acute distress, well-hydrated, well nourished. and Overweight. Skin: Skin color, texture, turgor normal, no suspicious rashes or lesions. Head: Normocephalic, no masses, lesions, tenderness or abnormalities. Eyes: Anicteric sclera. Pupils are equally round and reactive to light. Extraocular movements are intact. . Ears: External ears, TM's normal, canals clear. Nose/Sinuses: Nares normal, septum midline, mucosa normal, no drainage or sinus tenderness. Oropharynx: Lips, mucosa, and tongue normal, teeth and gums normal, oropharynx normal. Neck: Supple, no adenopathy; thyroid symmetric, normal size, no bruits. Lungs: Lungs clear to auscultation. No wheezing, rhonchi, rales.. Heart: RRR without murmur, gallop, or rubs. No ectopy. Abdomen: Normal abdominal exam, Abdomen soft, non-tender. Bowel sounds normal. No masses, organomegaly. Extremities: No deformities, edema, skin discoloration, clubbing or cyanosis. Good capillary refill. . Musculoskeletal: Spine range of motion normal. Muscular strength intact, No joint swelling, deformity, or tenderness. Peripheral Pulses: Normal. Niranjan (more content not included)... Normal [facility] Comprehensive metabolic 2000 panelon 07-09-2024 Albumin [Mass/Vol] 4.8 g/dL Normal 3.9-4.9 [facility] Comment on above: Order Comment: Speci men Type: BLOOD SPECIMENOrdering Facility: [facility] Address: [address] [place] [address] Performed By: #### L IPNF, 97112-3 ####[facility] [id number] [place] [address] [place] ALP [Catalytic activity/Vol] 87 U/L Normal 38-[address] [facility] Comment on above: Order Comment: Speci men Type: BLOOD SPECIMENOrdering Facility: [facility] Address: [address] [place] [address] Performed By: #### L IPNF, 58651-8 ####[facility] [id number] [place] [address] [place] ALT [Catalytic activity/Vol] 75 U/L High 10-[address] [facility] Comment on above: Order Comment: Speci men Type: BLOOD SPECIMENOrdering Facility: [facility] Address: [address] [place] [address] Performed By: #### L IPNF, 76332-9 ####[facility] [id number] [place] [address] [place] Anion gap [Moles/Vol] 12 mmol/L Normal 8-[address] [facility] Comment on above: Order Comment: Speci men Type: BLOOD SPECIMENOrdering Facility: [facility] Address: [address] [place] [address] Performed By: #### L IPNF, ####[facility] [id number] [place] [address] [place] AST [Catalytic activity/Vol] 43 U/L High 14-[address] [facility] Comment on above: Order Comment: Speci men Type: BLOOD SPECIMENOrdering Facility: [facility] Address: [address] [place] [address] Performed By: #### L IPNF, 47086-8 ####[facility] [id number] [place] [address] [place] Bilirubin [Mass/Vol] 0.3 mg/dL Normal 0.2-1.3 [facility] Comment on above: Order Comment: Speci men Type: BLOOD SPECIMENOrdering Facility: [facility] Address: [address] [place] [address] Performed By: #### L IPNF, 01993-0 ####[facility] [id number] [place] [address] [place] Calcium [Mass/Vol] 10.3 mg/dL High 8.5-10.2 [facility] Comment on above: Order Comment: Speci men Type: BLOOD SPECIMENOrdering Facility: [facility] Address: [address] [place] [address] Performed By: #### L IPNF, 16575-3 ####[facility] [id number] [place] [address] [place] Chloride [Moles/Vol] 104 mmol/L Normal 98-107 [facility] Comment on above: Order Comment: Speci men Type: BLOOD SPECIMENOrdering Facility: [facility] Address: [address] [place] [address] Performed By: #### L IPNF, 34262-1 ####[facility] [id number] [place] [address] [place] CO2 [Moles/Vol] 25 mmol/L Normal 22-[address] [facility] Comment on above: Order Comment: Speci men Type: BLOOD SPECIMENOrdering Facility: [facility] Address: [address] [place] [address] Performed By: #### L IPNF, 19490-8 ####[facility] [id number] [place] [address] [place] Creatinine [Mass/Vol] 0.83 mg/dL Normal 0.73-1.[address] [facility] Comment on above: Order Comment: Speci men Type: BLOOD SPECIMENOrdering Facility: [facility] Address: [address] [place] [address] Performed By: #### L IPNF, 94506-0 ####[facility] [id number] [place] [address] [place] Creatinine and Glomerular filtration rate.predicted panel (S/P/Bld) 111 mL/min/1.73m??? Normal >=[address] [facility] Comment on above: Order Comment: González martinez Type: BLOOD SPECIMENOrdering Facility: [facility] Address: [address] [place] [address] Result Comment: Janet mated Glomerular Filtration Rate (eGFR) is calculated using the 2020 CKD-EPI creatinine equation. This equation utilizes serum creatinine, sex, and age as parameters. The creatinine assay has traceable calibration to isotope dilution-mass spectrometry. Refer to KDIGO guidelines for clinical interpretation. In patients with unstable renal function, e.g. those with acute kidney injury, the eGFR may not accurately reflect actual GFR. Performed By: #### L RADHA, 45502-5 ####[facility] [id number] [place] [address] [place] Glucose [Mass/Vol] 82 mg/dL Normal 74-99 [facility] Comment on above: Order Comment: González martinez Type: BLOOD SPECIMENOrdering Facility: [facility] Address: [address] [place] [address] Result Comment: The [place] Diabetes Association (ADA) provides guidance for cutoff values for fasting glucose and random glucose. The ADA defines fasting as no caloric intake for at least 8 hours. Fasting plasma glucose results between 100 to 125 mg/dL indicate increased risk for diabetes (prediabetes). Fasting plasma glucose results greater than or equal to 126 mg/dL meet the criteria for diagnosis of diabetes. In the absence of unequivocal hyperglycemia, results should be confirmed by repeat testing. In a patient with classic symptoms of hyperglycemia or hyperglycemic crisis, random plasma glucose results greater than or equal to 200 mg/dL meet the criteria for diagnosis of diabetes. Reference: Standards of Medical Care in Diabetes 2016, [place] Diabetes Association. Diabetes Care. 2016.39(Suppl 1). Performed By: #### L RADHA, ####[facility] [id number] [place] [address] [place] Potassium [Moles/Vol] 4.3 mmol/L Normal 3.7-5.[address] [facility] Comment on above: Order Comment: Speci men Type: BLOOD SPECIMENOrdering Facility: [facility] Address: [address] [place] [address] Performed By: #### L IPNF, ####[facility] [id number] [place] [address] [place] Protein [Mass/Vol] 7.5 g/dL Normal 6.3-8.0 [facility] Comment on above: Order Comment: Speci men Type: BLOOD SPECIMENOrdering Facility: [facility] Address: [address] [place] [address] Performed By: #### L IPNF, ####[facility] [id number] [place] [address] [place] Sodium [Moles/Vol] 141 mmol/L Normal 136-144 [facility] Comment on above: Order Comment: Speci men Type: BLOOD SPECIMENOrdering Facility: [facility] Address: [address] [place] [address] Performed By: #### L IPNF, ####[facility] [id number] [place] [address] [place] Urea nitrogen [Mass/Vol] 15 mg/dL Normal 9-[address] [facility] Comment on above: Order Comment: Speci men Type: BLOOD SPECIMENOrdering Facility: [facility] Address: [address] [place] [address] Performed By: #### L IPNF, ####[facility]IA [id number] [id number] [address] [place] HbA1c (Bld)on 07-09-2024 Average glucose Estimated from glycated hemoglobin (Bld) [Mass/Vol] 103 mg/dL Normal [facility] Comment on above: Order Comment: González martinez Type: BLOOD SPECIMENOrdering Facility: [facility] Address: [address] [place] [address] Result Comment: eAG: (Estimated average glucose) is a calculated value from HgbA1c and is tax representative of the average blood glucose level in the last 2-3 month period. Performed By: #### 5 5454-3 ####[facility]IA [id number] [place] [address] [place] HbA1c (Bld) [Mass fraction] 5.2 % Normal 4.3-5.[address] [facility] Comment on above: Order Comment: González martinez Type: BLOOD SPECIMENOrdering Facility: [facility] Address: [address] [place] [address] Result Comment: [place] Diabetes Association guidelines indicate that patients with HgbA1c in the range 5.7-6.4% are at increased risk for development of diabetes, and intervention by lifestyle modification may be beneficial. HgbA1c greater or equal to 6.5% is considered diagnostic of diabetes. Performed By: #### 5 5454-3 ####[facility]IA [id number] [place] [address] [place] LIPID PANEL, NONFASTINGon Cholesterol [Mass/Vol] 204 mg/dL High <[address] [facility] Comment on above: Order Comment: González martinez Type: BLOOD SPECIMENOrdering Facility: [facility] Address: [address] [place] [address] Result Comment: <200 mg/dL, Desirable 200-239 mg/dL, Borderline high >239 mg/dL, High Performed By: #### L IPNF, 78073-0 ####[facility]CLIA [id number] [place] [address] [place] HDL CHOLESTEROL, NF 50 mg/dL Normal >39 [facility] Comment on above: Order Comment: González men Type: BLOOD SPECIMENOrdering Facility: [facility] Address: [address] [place] [address] Result Comment: 40-5 9 mg/dL, Acceptable >59 mg/dL, High: Negative risk factor for coronary heart disease <40 mg/dL, Low: Positive risk factor for coronary heart disease Performed By: #### L IPNF, 78611-8 ####[facility]CLIA [id number] [address] OF [facility] LDL CHOLESTEROL, NF 121 mg/dL High <100 [facility] Comment on above: Order Comment: González michelle Type: BLOOD SPECIMENOrdering Facility: [facility] Address: [address] [place] [address] Result Comment: <100 mg/dL, Optimal 100-129 mg/dL, Near optimal/above optimal 130-159 mg/dL, Borderline high 160-189 mg/dL, High >189 mg/dL, Very high Secondary prevention optimal LDL Cholesterol levels are recommended to be < 70 mg/dL Performed By: #### L IPNF, 72278-0 ####[facility]CLIA [id number] [address] [place] [facility] LDL/HDL RATIO, NF 2.42 mg/dL Normal <2.54 [facility] Comment on above: Order Comment: González michelle Type: BLOOD SPECIMENOrdering Facility: [facility] Address: [address] [place] [address] Result Comment: Reffrancois burlesonce: 1. National Cholesterol Education Program ATP III Guideline At-A-Glance Quick Desk Reference: National Heart, Lung, and Blood Baldwin. National Institutes of Health. 2001: NIH Publication No. 01-3305. 2. An International Atherosclerosis Society position paper: global recommendations for the management of dyslipidemia: executive summary, Atherosclerosis. 2014: 232(2):410-413. Performed By: #### L IPNF, 63375-0 ####[facility]IA [id number] [place] [address] [place] NON HDL CHOL, NF 154 mg/dL High <130 [facility] Comment on above: Order Comment: Speci men Type: BLOOD SPECIMENOrdering Facility: [facility] Address: [address] [place] [address] Result Comment: <130 mg/dL, Optimal 130-159 mg/dL, Near optimal/above optimal 160-189 mg/dL, Borderline high 190-219 mg/dL, High >219 mg/dL, Very high Secondary prevention optimal non HDL Cholesterol levels are recommended to be <100 mg/dL Performed By: #### L IPNF, ####[facility]CLIA [id number] [place] [address] [place] T CHOL/HDL RATIO NF 4.08 mg/dL Normal <5.10 [facility] Comment on above: Order Comment: Speci men Type: BLOOD SPECIMENOrdering Facility: [facility] Address: [address] [place] [address] Performed By: #### L IPNF, ####[facility]CLIA [id number] [place] [address] [place] TRIGLYCERIDES, NF 165 mg/dL High <150 [facility] Comment on above: Order Comment: Speci men Type: BLOOD SPECIMENOrdering Facility: [facility] Address: [address] [place] [address] Result Comment: <150 mg/dL, Normal 150-199 mg/dL, Borderline high 200-499 mg/dL, High >499 mg/dL, Very high Performed By: #### L IPNF, ####[facility]CLIA [id number] [place] [address] [place] VLDL CHOLESTEROL, NF 33 mg/dL High <30 [facility] Comment on above: Order Comment: Speci men Type: BLOOD SPECIMENOrdering Facility: [facility] Address: [address] [place] [address] Performed By: #### L IPNF, ####[facility] KHURRAM [id number] [address] [place] CNOVon 07-01-2024 CNOV Office Visit (UCWSTR ) RENY GONZALES ([id number]) 1980 M Date Time Provider Department 07/01/24 5:15 PM [facility] During your visit today, we recorded the following information about you: Temperature Pulse Respiration Blood pressure 97.8 degrees 74/minute 16/minute 122/80 Weight 87.7 kg Aminta Villarreal APRN.ELEMENTARY MATH TUTOR 07/01/2024 6:30 PM Signed Subjective Patient came in with complaints of possible finger infection. Patient says he cut it a few days ago. Said that now it appears redness and swelling. Denies any fever chills nausea vomiting. Denies any pain in the area. Is able to bend the finger. The history is provided by the patient. No automotive parts interpreter was used. Review of Systems Constitutional: Negative. Skin: Negative. Objective Physical Exam Constitutional: Appearance: Normal appearance. Pulmonary: Effort: Pulmonary effort is normal. Musculoskeletal: Hands: Comments: Blue area blister Red area missling nail with scabbing. sLight redness around it. No drainage noted Neurological: Mental Status: He is alert. PAST MEDICAL HISTORY Diagnosis Date Allergic rhinitis 08/16/2015 Mixed hyperlipidemia 08/16/2015 Psoriasis 08/20/2018 Well adult exam 06/15/2021 Last done: 06/15/2021 PAST SURGICAL HISTORY Procedure Laterality Date APPENDECTOMY 01/09/2020 PAST SURGICAL HISTORY OF wire broken jaw ALLERGIES Contrast Dye [Iodine] MEDICATIONS simvastatin (ZOCOR) 40 mg tablet Take 0.5 tablets by mouth daily at bedtime. fluticasone (FLONASE) 50 mcg/actuation nasal spray Use 2 Sprays in each nostril once daily. Rinse mouth after use. FEXOFENADINE HCL (RADHA ORAL) Take by mouth as directed. MULTIVIT-MINERALS/FERR OUS FUM (MULTI VITAMIN ORAL) Take by mouth once daily. doxycycline monohydrate 100 mg tablet Take 1 tablet by mouth two times a day for 7 days. FAMILY HISTORY Problem Relation Age of Onset Lipids Mother MVA 2018 Hypertension Father Lipids Father Lipids Brother Lipids Brother Breast Cancer Maternal Grandmother Prostate Cancer No Family History Colon Cancer No Family History Ovarian cancer No Family History Social History Tobacco Use Smoking status: Never Smokeless tobacco: Never Vaping Use Vaping status: Never Used Substance Use Topics Alcohol use: Yes Alcohol/week: 3.0 standard drinks of alcohol Types: 3 Cans of beer per week Comment: occasionally (beer or liquor) Drug use: No ASSESSMENT/PLAN: 1. Swelling - ICD9: 782.3, ICD10: R60.9 (primary diagnosis) - XR DIGIT GENERAL 3V FRONTAL/LAT/OBL LEFT - neg 2. Skin infection - ICD9: 686.9, ICD10: L08.9 - DOXYCYCLINE MONOHYDRATE 100 MG TABLET Stated about proper use of medication and supportive therapies. Patient will follow-up if signs and symptoms seem to be getting worse not better. Patient agreeable to care plan. Aminta Villarreal APRN.ELEMENTARY MATH TUTOR Allergies As of Date: 07/01/2024 Noted Allergy Reaction CONTRAST DYE (IODINE) 07/04/2023 4 - Hives Date Reviewed: 07/01/2024 Reviewed by: Mary Ann Martinez MA - Fully Assessed Reason for Visit: Finger Injury [2772] Cmt: left ring finger seen on 06/21 blister formation x 3-4 days Primary Visit Diagnosis:Swelling [R60.9] Other Visit Diagnosis:Skin infection [L08.9] Order(s):XR DIGIT GENERAL 3V FRONTAL/LAT/OBL LEFT [[id number]] Order #: [id number] FUTURE doxycycline monohydrate 100 mg tabletTake 1 tablet by mouth two times a day for 7 days.Disp: 14 tabletRfl: 0 Prescriptions as of 07/01/2024 - doxycycline monohydrate 100 mg tablet Take 1 tablet by mouth two times a day for 7 days. - simvastatin (ZOCOR) 40 mg tablet Take 0.5 tablets by mouth daily at bedtime. - fluticasone (FLONASE) 50 mcg/actuation nasal spray Use 2 Sprays in each nostril once daily. Rinse mouth after use. - FEXOFENADINE HCL (RADHA ORAL) Take by mouth as directed. - MULTIVIT-MINERALS/FERR OUS FUM (MULTI VITAMIN ORAL) Take by mouth once daily. Problem List As Of Date 07/01/2024 Noted Resolved Mixed hyperlipidemia [E78.2] 08/16/2015 Allergic rhinitis [J30.9] 08/16/2015 Psoriasis [L40.9] 08/20/2018 Well adult exam [Z00.00] 06/15/2021 Encounter for screening for diabetes mellitus [*06/15/2021 Prescriptions ordered this encounter Disp Refills Start End DOXYCYCLINE MONOHYDRATE 100 MG TABLET 14 t* 0 07/01/2024 07/08/2024 Route: ORAL Sig: Take 1 tablet by mouth two times a day for 7 days. Encounter Status:Closed by AMINTA VILLARREAL on 07/01/[address] [facility] XR DIGIT 3V FRONTAL/LAT/OBL LTon 07-01-2024 XR DIGIT 3V FRONTAL/LAT/OBL LT * * *Final Report* * * DATE OF EXAM: Jul 01 2024 5:32PM WOX [id number] - XR DIGIT 3V FRONTAL/LAT/OBL LT / PROCEDURE REASON: Swelling * * * * Physician Interpretation * * * * Examination: XR DIGIT 3V FRONTAL/LAT/OBL LT History: Swelling Technique: XR DIGIT 3V FRONTAL/LAT/OBL LT Comparison: None RESULT: 3 views of the left fourth finger show no fracture or focal bony abnormality. No radiopaque foreign material is seen. No bone destruction Normal alignment. Normal mineralization IMPRESSION: NO ACUTE FRACTURE. NO RADIOPAQUE FOREIGN MATERIAL Dispensary Technician: LOVEFiLM Transcribe Date/Time: Jul 01 2024 6:08P Dictated by : MINE CARTAGENA MD This examination was interpreted and the report reviewed and electronically signed by: MINE CARTAGENA MD on Jul 01 2024 6:08PM EST [id number] Normal [facility] XR Finger - left AP and Late ral and obliqueon 07-01-2024 IMPRESSION: NO ACUTE FRACTURE. NO RADIOPAQUE FOREIGN MATERIAL Dispensary Technician: PSCB Transcribe Date/Time: Jul 01 2024 6:08P Dictated by : MINE CARTAGENA MD This examination was interpreted and the report reviewed and electronically signed by: MINE CARTAGENA MD on Jul 01 2024 6:08PM EST DIVISION OF RADIOLOGY * * *Final Report* * * DATE OF EXAM: Jul 01 2024 5:32PM WOX [id number] - XR DIGIT 3V FRONTAL/LAT/OBL LT / PROCEDURE REASON: Swelling * * * * Physician Interpretation * * * * Examination: XR DIGIT 3V FRONTAL/LAT/OBL LT History: Swelling Technique: XR DIGIT 3V FRONTAL/LAT/OBL LT Comparison: None RESULT: 3 views of the left fourth finger show no fracture or focal bony abnormality. No radiopaque foreign material is seen. No bone destruction Normal alignment. Normal mineralization DIVISION OF RADIOLOGY Provider, Jad Vernon - 07/01/2024 * * *Final Report* * * DATE OF EXAM: Jul 01 2024 5:32PM WOX [id number] - XR DIGIT 3V FRONTAL/LAT/OBL LT / PROCEDURE REASON: Swelling * * * * Physician Interpretation * * * * Examination: XR DIGIT 3V FRONTAL/LAT/OBL LT History: Swelling Technique: XR DIGIT 3V FRONTAL/LAT/OBL LT Comparison: None RESULT: 3 views of the left fourth finger show no fracture or focal bony abnormality. No radiopaque foreign material is seen. No bone destruction Normal alignment. Normal mineralization IMPRESSION IMPRESSION: NO ACUTE FRACTURE. NO RADIOPAQUE FOREIGN MATERIAL Dispensary Technician: PSCB Transcribe Date/Time: Jul 01 2024 6:08P Dictated by : MINE CARTAGENA MD This examination was interpreted and the report reviewed and electronically signed by: MINE CARTAGENA MD on Jul 01 2024 6:08PM EST [facility] Radiology Study observation (narrative) [facility] XR Finger - left AP and Late ral and obliqueOrdered By: Ccf Provider on 07-01-2024 [facility] CNOVon 06-21-2024 CNOV Office Visit (UCWSTR ) RENY GONZALES ([id number]) 1980 M Date Time Provider Department 06/21/24 12:45 PM LIN JERRY [facility] During your visit today, we recorded the following information about you: Temperature Pulse Respiration Blood pressure 98.6 degrees 78/minute 16/minute 162/100 Weight 87.4 kg Lin Jerry APRN.CNP 06/21/2024 1:21 PM Signed This note was created using Picosunriter. Subjective Reny Gonzales is a 44 year old male. HPI Patient was attempting to peel an orange when the iris slipped avulsing the distal third of the left fourth fingernail and tip of finger. His last tetanus shot was approximately 4 years ago. Patient was unable to stop the bleeding and presents for evaluation. Review of Systems Skin: Positive for wound. Objective BP 162/100 Pulse 78 Temp 37 ?C (98.6 ?F) Resp 16 Wt 87.4 kg (192 lb 10.9 oz) SpO2 97% BMI 27.26 kg/m? Physical Exam Vitals and nursing note reviewed. Constitutional: General: He is not in acute distress. Appearance: Normal appearance. He is not ill-appearing. HENT: Head: Normocephalic. Pulmonary: Effort: Pulmonary effort is normal. Musculoskeletal: General: Normal range of motion. Cervical back: Normal range of motion. Skin: General: Skin is warm and dry. Comments: Avulsion of the tip of the left fourth finger as noted in HPI Neurological: General: No focal deficit present. Mental Status: He is alert. Psychiatric: Mood and Affect: Mood normal. Behavior: Behavior normal. Assessment and Plan ASSESSMENT/PLAN: 1. Avulsion of skin of finger, initial encounter - ICD9: 883.0, ICD10: S61.209A Wound was cleaned with soap and water. Due to the type of injury no suturing was able to be performed. I did apply a nonadherent dressing with antibiotic ointment with Coban as a pressure wrap. Patient elevated his hand and I monitored him for approximately 20 minutes with no breakthrough bleeding and patient was discharged home with instructions to leave dressing in place until tomorrow and then once daily replace the dressing with a clean layer of antibiotic ointment and a fresh dressing and Coban. Lin Jerry APRN.CNP Allergies As of Date: 06/21/2024 Noted Allergy Reaction CONTRAST DYE (IODINE) 07/04/2023 4 - Hives Date Reviewed: 06/21/2024 Reviewed by: Mary Ann Martinez MA - Fully Assessed Reason for Visit: Laceration [1747] Cmt: x 1 hour left ring finger, peeling orange with iris Primary Visit Diagnosis:Avulsion of skin of finger, initial encounter [S61.209A] Prescriptions as of 06/21/2024 - simvastatin (ZOCOR) 40 mg tablet Take 0.5 tablets by mouth daily at bedtime. - fluticasone (FLONASE) 50 mcg/actuation nasal spray Use 2 Sprays in each nostril once daily. Rinse mouth after use. - FEXOFENADINE HCL (RADHA ORAL) Take by mouth as directed. - MULTIVIT-MINERALS/FERR OUS FUM (MULTI VITAMIN ORAL) Take by mouth once daily. Problem List As Of Date 06/21/2024 Noted Resolved Mixed hyperlipidemia [E78.2] 08/16/2015 Allergic rhinitis [J30.9] 08/16/2015 Psoriasis [L40.9] 08/20/2018 Well adult exam [Z00.00] 06/15/2021 Encounter for screening for diabetes mellitus [*06/15/2021 Encounter Status:Closed by LIN JERRY on 06/21/[address] [facility] Vital Signs Date Time Vital Sign Value Performing Clinician Faci lity 07-01-2024 17:08-0500 Body mass index (BMI) [Ratio] 27.35 kg/m2 Aminta Villarreal APRN.CNP Work Phone: [facility] 07-01-2024 17:08-0500 Body temperature 97.81 [degF] Aminta Villarreal APRN.CNP Work Phone: [facility] 07-01-2024 17:08-0500 Body weight 87.7 kg Aminta Villarreal APRN.CNP Work Phone: [facility] 07-01-2024 17:08-0500 Diastolic blood pressure 80 mm[Hg] Aminta Villarreal APRN.CNP Work Phone: [facility] 07-01-2024 17:08-0500 Heart rate 74 /min Aminta Villarreal NEWSPAPER STUFFER.ELEMENTARY MATH TUTOR Work Phone: [facility] 07-01-2024 17:08-0500 Respiratory rate 16 /min Aminta Villarreal NEWSPAPER STUFFER.ELEMENTARY MATH TUTOR Work Phone: [facility] 07-01-2024 17:08-0500 SaO2% (BldA) [Mass fraction] 98 % Aminta Villarreal NEWSPAPER STUFFER.ELEMENTARY MATH TUTOR Work Phone: [facility] 07-01-2024 17:08-0500 Systolic blood pressure 122 mm[Hg] Aminta Villarreal NEWSPAPER STUFFER.ELEMENTARY MATH TUTOR Work Phone: [facility] 06-21-2024 12:40-0500 Body mass index (BMI) [Ratio] 27.26 kg/m2 Lin Moomaw NEWSPAPER STUFFER.ELEMENTARY MATH TUTOR Work Phone: [facility] 06-21-2024 12:40-0500 Body temperature 98.6 [degF] Lin Moomaw NEWSPAPER STUFFER.ELEMENTARY MATH TUTOR Work Phone: [facility] 06-21-2024 12:40-0500 Body weight 87.4 kg Lin Moomaw NEWSPAPER STUFFER.ELEMENTARY MATH TUTOR Work Phone: [facility] 06-21-2024 12:40-0500 Diastolic blood pressure 100 mm[Hg] Lin Moomaw NEWSPAPER STUFFER.ELEMENTARY MATH TUTOR Work Phone: [facility] 06-21-2024 12:40-0500 Heart rate 78 /min Lin Moomaw NEWSPAPER STUFFER.ELEMENTARY MATH TUTOR Work Phone: [facility] 06-21-2024 12:40-0500 Respiratory rate 16 /min Lin Moomaw NEWSPAPER STUFFER.ELEMENTARY MATH TUTOR Work Phone: [facility] 06-21-2024 12:40-0500 SaO2% (BldA) [Mass fraction] 97 % Lin Moomaw NEWSPAPER STUFFER.ELEMENTARY MATH TUTOR Work Phone: [facility] 06-21-2024 12:40-0500 Systolic blood pressure 162 mm[Hg] Lin Moomaw NEWSPAPER STUFFER.ELEMENTARY MATH TUTOR Work Phone: [facility] 07-04-2023 17:49-0500 Diastolic blood pressure 91 mm[Hg] Khloe Salazar MD Work Phone: [facility] 07-04-2023 17:49-0500 Heart rate 60 /min Khloe Salazar MD Work Phone: [facility] 07-04-2023 17:49-0500 Systolic blood pressure 139 mm[Hg] Khloe Salazar MD Work Phone: [facility] 07-04-2023 16:45-0500 Body height 179.1 cm Khloe Salazar MD Work Phone: [facility] 07-04-2023 16:45-0500 Body weight 86.18 kg Khloe Salazar MD Work Phone: [facility] 07-04-2023 16:45-0500 Respiratory rate 16 /min Khloe Salazar MD Work Phone: [facility] Encounters Encounter Date Encounter Type Care Provider Facility Start: 03-18-2025 ambulatory Zaire Humphrey Facility :[facility] Start: 01-13-2025 End: 01-13-2025 Telephone encounter Khloe Salazar MD Work Phone: [facility] Comment on above: Orders (Pt requestin g to Fax to Dr Humphrey @ [facility] ) Start: 01-07-2025 End: 01-07-2025 Telephone encounter Khloe Salazar MD Work Phone: [facility] Comment on above: Consult; Referral fo r colonoscopy Start: 10-20-2024 End: 10-20-2024 Follow-up encounter Khloe Salazar MD Work Phone: [facility] Comment on above: Results Start: 10-17-2024 End: 10-17-2024 ambulatory KHLOE SALAZAR Facility:[facility] Start: 08-19-2024 End: 08-20-2024 Telephone encounter Khloe Salazar MD Work Phone: [facility] Comment on above: Results Start: 08-18-2024 End: 08-18-2024 ambulatory KHLOE SALAZAR Facility:[facility] Start: 07-14-2024 End: 07-14-2024 Telephone encounter Khloe Salazar MD Work Phone: [facility] Comment on above: Results Start: 07-09-2024 End: 07-09-2024 ambulatory KHLOE SALAZAR Facility:[facility] Start: 07-09-2024 Encounter for genera l adult medical examination without abnormal findings KHLOE SALAZAR [facility] Start: 07-09-2024 Patient encounter status Hayley Salazar MD Work Phone: [facility] Start: 07-01-2024 End: 07-01-2024 Subsequent hospital visit by physician [facility] Work Phone: Radiology Comment on above: Swelling [R60.9] Start: 07-01-2024 End: 07-01-2024 ambulatory KHLOE SALAZAR Facility:[facility] Start: 07-01-2024 End: 07-01-2024 Patient encounter procedure Aminta Villarreal APRN.ELEMENTARY MATH TUTOR Work Phone: [facility] Comment on above: Swelling (Primary Dx ); Skin infection Start: 06-21-2024 End: 06-21-2024 ambulatory KHLOE SALAZAR Facility:[facility] Start: 06-21-2024 End: 06-21-2024 Patient encounter procedure Lin Jerry APRN.ELEMENTARY MATH TUTOR Work Phone: [facility] Comment on above: Avulsion of skin of finger, initial encounter (Primary Dx) Start: 07-04-2023 End: 07-04-2023 Patient encounter procedure Khloe Salazar MD Work Phone: [facility] Comment on above: Well adult exam ([place] selene Dx); Mixed hyperlipidemia; Allergic rhinitis, unspecified seasonality, unspecified trigger; Psoriasis; Encounter for screening for diabetes mellitus; Elevated blood pressure reading without diagnosis of hypertension Start: 07-04-2023 End: 07-04-2023 Patient encounter status Khloe Salazar MD Work Phone: [facility] Work Phone: Procedures Date Procedure Procedure Detail Performing Clinician Start: 07-09-2024 Lipid 1996 panel - S toby or Plasma Khloe Salazar MD Work Phone: Start: 07-01-2024 Radex fingr minimum 2 views Aminta Villarreal APRN.ELEMENTARY MATH TUTOR Work Phone: Start: 06-20-2022 Lipid 1996 panel - S toby or Plasma Khloe Salazar MD Work Phone: Plan of Treatment Date Care Activity Detail Author Start: 01-26-2030 Urine microalbumin profile DTaP,Tdap,Td Vaccine (3 - Td or Tdap) [facility] Start: 07-09-2029 Lipid panel Lipid Screening [facility] Start: 06-20-2027 Lipid 1996 panel - Serum or Plasma Lipid Screening [facility] Start: 06-20-2027 Lipid panel Lipid Screening [facility] Start: 07-15-2025 End: 07-15-2025 Patient encounter procedure [facility] Comment on above: Physical Start: 07-09-2025 Anxiety Screening Anxiety Screening [facility] Comment on above: Postponed from 03/06 (Declined at this time) Start: 09-19-2024 End: 12-19-2024 Gamma glutamyl transferase [Enzymatic activity/volume] in Serum or Plasma GGT Lab Routine Elevated LFTs Expected: 09/19/2024, Expires: 12/19/2024 [facility] Comment on above: Expected: 09/19/2024 , Expires: 12/19/2024 Start: 09-19-2024 End: 12-19-2024 Hepatic function 2000 panel - Serum or Plasma HEPATIC FUNCTION PNL Lab Routine Elevated LFTs Expected: 09/19/2024, Expires: 12/19/2024 [facility] Work Phone: Comment on above: Expected: 09/19/2024 , Expires: 12/19/2024 Start: 08-14-2024 End: 11-13-2024 Calcium [Mass/volume] in Serum or Plasma CALCIUM, TOTAL Lab Routine Hypercalcemia Expected: 08/14/2024, Expires: 11/13/2024 [facility] Comment on above: Expected: 08/14/2024 , Expires: 11/13/2024 Start: 08-14-2024 End: 11-13-2024 HEP ACUTE PANEL/RNA HEP ACUTE PANEL/RNA Lab Routine Elevated LFTs Expected: 08/14/2024, Expires: 11/13/2024 [facility] Work Phone: Comment on above: Expected: 08/14/2024 , Expires: 11/13/2024 Start: 08-14-2024 End: 11-13-2024 Hepatic function 2000 panel - Serum or Plasma HEPATIC FUNCTION PNL Lab Routine Elevated LFTs Expected: 08/14/2024, Expires: 11/13/2024 [facility] Comment on above: Expected: 08/14/2024 , Expires: 11/13/2024 Start: 08-14-2024 End: 11-13-2024 Parathyrin.intact [Mass/volume] in Serum or Plasma PTH INTACT Lab Routine Hypercalcemia Expected: 08/14/2024, Expires: 11/13/2024 [facility] Comment on above: Expected: 08/14/2024 , Expires: 11/13/2024 Start: 07-09-2024 End: 07-09-2024 Patient encounter procedure 07/09/2024 4:20 PM EST Office Visit [facility] [address] [place], [place] [id number] Khloe Salazar MD [address] [facility] [place] [id number] Physical [facility] Comment on above: Physical Start: 03-30-2024 Covid-19 Vaccine ( season) Covid-19 Vaccine ( season) [facility] Start: 03-30-2024 Influenza vaccination Influenza Vacc ine (#1) [facility] Start: 07-29-2023 Depression Assessment Depression Ass essment [facility] Comment on above: Postponed from 07/30 (Declined at this time) Start: 07-04-2023 End: 10-03-2023 Comprehensive metabolic 2000 panel - Serum or Plasma COMP METABOLIC PANEL Lab Routine Mixed hyperlipidemia Expected: 07/04/2023, Expires: 10/03/2023 [facility] Work Phone: Comment on above: Expected: 07/04/2023 , Expires: 10/03/2023 Start: 07-04-2023 End: 10-03-2023 Hemoglobin A1c in Blood HGB A1C Lab Routine Well adult exam Encounter for screening for diabetes mellitus Expected: 07/04/2023, Expires: 10/03/2023 [facility] Work Phone: Comment on above: Expected: 07/04/2023 , Expires: 10/03/2023 Start: 07-04-2023 End: 10-03-2023 LIPID PANEL, NONFASTING LIPID PANEL, NONFASTING Lab Routine Mixed hyperlipidemia Expected: 07/04/2023, Expires: 10/03/2023 [facility] Work Phone: Comment on above: Expected: 07/04/2023 , Expires: 10/03/2023 Start: 07-04-2023 End: 10-03-2023 Urinalysis complete panel - Urine URINALYSIS, WITH MICROSCOPIC Lab Routine Mixed hyperlipidemia Expected: 07/04/2023, Expires: 10/03/2023 [facility] Work Phone: Comment on above: Expected: 07/04/2023 , Expires: 10/03/2023 Start: 1998 Anxiety Screening Anxiety Screening [facility] Start: 1998 [facility] Immunization Date Immunization Notes Care Provider Bambi goddard 07-09-2024 COVID-19 vaccine, ag e 12+ yr ([email or web address] [facility]) Khloe Salazar MD Work Phone: [facility] 07-09-2024 influenza, seasonal, injectable Khloe Salazar MD Work Phone: [facility] 05-30-2023 influenza, injectabl e, quadrivalent, preservative free Khloe Salazar MD Work Phone: [facility] Work Phone: 05-30-2023 influenza virus vaccine, unspecified formulation Lin Jerry APRN.CNP Work Phone: [facility] 06-27-2022 influenza, injectabl e, quadrivalent, contains preservative Khloe Salazar MD Work Phone: [facility] 06-15-2021 influenza, injectabl e, quadrivalent, contains preservative Khloe Salazar MD Work Phone: [facility] 11-18-2020 COVID-19 original vaccine, full dose, monovalent (MODERNA) Khloe Salazar MD Work Phone: [facility] 10-21-2020 COVID-19 original vaccine, full dose, monovalent (MODERNA) Khloe Salazar MD Work Phone: [facility] 01-27-2020 tetanus toxoid, redu jennifer diphtheria toxoid, and acellular pertussis vaccine, adsorbed Khloe Salazar MD Work Phone: [facility] 08-20-2018 influenza, injectabl e, quadrivalent, contains preservative Khloe Salazar MD Work Phone: [facility] 08-24-2017 influenza, injectabl e, quadrivalent, contains preservative Khloe Salazar MD Work Phone: [facility] 08-16-2015 influenza, injectabl e, quadrivalent, contains preservative Khloe Salazar MD Work Phone: [facility] 09-30-2007 tetanus toxoid, redu jennifer diphtheria toxoid, and acellular pertussis vaccine, adsorbed Khloe Salazar MD Work Phone: [facility] Work Phone: Payers Date Payer Category Payer Self-pay 2019 Private Health Insurance [employer] [id number] 2019 Unknown [employer] PPO [id number] 2019-Present [phone] [address] [place] [id number] PPO [id number] 2019 Unknown [id number] Unknown [id number] Social History Date Type Detail Facility Start: 06-27-2022 Tobacco smoking stat [facility] Never smoked tobacco [facility] Start: 06-27-2022 Tobacco use and exposure Smoke less tobacco non-user [facility] Start: 07-04-2023 End: 07-09-2024 Alcohol intake Current drinker of alcohol (finding) [facility] Start: 07-02-2023 End: 07-04-2023 Alcohol intake [facility] Start: 07-02-2023 End: 07-09-2024 [facility] [employer] [facility] Has the [employer], [employer], or [employer] threatened to shut off services in your home in past 12Mo No [facility] Do you belong to any clubs or organizations such as pentecostal groups, unions, fraternal or athletic groups, or school groups? Yes [facility] Are you now , , , , never or living with a partner? [facility] How often to you hav e a drink containing alcohol? 4 or more times a week [facility] How many standard dr inks containing alcohol do you have on a typical day? 1 or 2 [facility] How often do you hav e 6 or more drinks on 1 occasion? Less than monthly [facility] How hard is it for y ou to pay for the very basics like food, housing, medical care, and heating Not hard at all [facility] Do you feel stress - tense, restless, nervous, or anxious, or unable to sleep at night because your mind is troubled all the time - these days [OSQ] Only a little [facility] (I/We) worried wheth er (my/our) food would run out before (I/we) got money to buy more. Never true [facility] Start: 06-27-2022 Alcohol Comment occasionally ( beer or liquor) [facility] Start: 1980 Sex Assigned At Not on file [facility] Clinical Notes 07-04-2023 to 01-13-2025 Telephone Encounter - Oumar Villarreal MA - 01/13/2025 1:55 PM EDTTelephone Encounter - Oumar Villarreal MA - 01/13/2025 1:55 PM EDTTelephone Encounter - Katelyn Robertson - 01/13/2025 11:19 AM EDT Note Date & Type Note Facility 01-13-2025 Telephone encount er Note This was faxed to Dr. Humphrey on 01/07/2025. Oumar Villarreal MA Contacted patient and let him know. Gave him Dr. Humphrey's number and re-faxed. Oumar Villarreal MA [facility] 01-13-2025 Miscellaneous Notes Formattin g of this note might be different from the original. This was faxed to Dr. Humphrey on 01/07/2025. Oumar Villarreal MA Contacted patient and let him know. Gave him Dr. Humphrey's number and re-faxed. Oumar Villarreal MA Patient called requesting to have the Screening for colon cancer [Z12.11] Fax to EULOGIO Humphrey Please advise documented in this encounter [facility] 01-13-2025 Telephone encount er Note Patient called requesting to have the Screening for colon cancer [Z12.11] Fax to EULOGIO Humphrey Please advise [facility] Work Phone: 01-07-2025 Telephone encount er Note Faxed. Oumar Villarreal MA [facility] 01-07-2025 Miscellaneous Notes Formattin g of this note might be different from the original. Faxed. Oumar Villarreal MA Order placed. Pt at office today advising that he will be turning 45 in Feb. Pt is wanting to have colonoscopy done. Pt states he was to let PCP know. Pt is wanting to have colonoscopy through Dr Friend. Not sure if it is too early to put in consult. Edilberto Rodriguez LPN documented in this encounter [facility] 01-07-2025 Telephone encount er Note Order placed. [facility] 01-07-2025 Telephone encount er Note Pt at office today advising that he will be turning 45 in Feb. Pt is wanting to have colonoscopy done. Pt states he was to let PCP know. Pt is wanting to have colonoscopy through Dr Friend. Not sure if it is too early to put in consult. Edilberto Rodriguez LPN [facility] 10-20-2024 Telephone encount er Note Patient notified and voiced understanding. Oumar Villarreal MA [facility] 10-20-2024 Miscellaneous Notes Formattin g of this note might be different from the original. Patient notified and voiced understanding. Oumar Villarreal MA Let patient know his repeat liver functions are all back to normal. documented in this encounter [facility] 10-20-2024 Telephone encount er Note Let patient know his repeat liver functions are all back to normal. [facility] 08-20-2024 Telephone encount er Note Patient notified of results and provider's instructions. Patient verbalizes understanding. Pt will repeat lab as instructed. Edilberto Rodriguez LPN [facility] 08-20-2024 Miscellaneous Notes Formattin g of this note might be different from the original. Patient notified of results and provider's instructions. Patient verbalizes understanding. Pt will repeat lab as instructed. Edilberto Rodriguez LPN Let patient know his testing for Hep A, B and C were all negative. His repeat liver functions showed that the AST is back to normal and the ALT is reduced and almost normal. I placed order to repeat in a month. His Urine was ok. His repeat calcium was normal. documented in this encounter [facility] 08-19-2024 Telephone encount er Note Let patient know his testing for Hep A, B and C were all negative. His repeat liver functions showed that the AST is back to normal and the ALT is reduced and almost normal. I placed order to repeat in a month. His Urine was ok. His repeat calcium was normal. [facility]14[facility] Patient returned call and given provider's message below and patient verbalized understanding. Mallory Cardenas RN [facility] 07-14-2024 Miscellaneous Notes Formattin g of this note might be different from the original. Patient returned call and given provider's message below and patient verbalized understanding. Mallory Cardenas RN Left message for patient to contact office. Oumar Villarreal MA Let patient know his liver functions were elevated along with his calcium. Labs placed to recheck this in a month. Lipid panel showed Trigs slightly elevated at 165 (goal<150 and typically he is, may of been related to thanksgiving meal)< HDL and LDL were ok. His other labs were ok. documented in this encounter [facility] 07-14-2024 [facility] Left message for patient to contact office. Oumar Villarreal MA [facility] 07-14-2024 [facility] Let patient know his liver functions were elevated along with his calcium. Labs placed to recheck this in a month. Lipid panel showed Trigs slightly elevated at 165 (goal<150 and typically he is, may of been related to thanksgiving meal)< HDL and LDL were ok. His other labs were ok. [facility] 07-09-2024 Note HNO ID: [id number] Author: KHLOE SALAZAR MD Service: ? Author Type: Physician Type: Progress Notes Filed: 07/09/2024 19:20 Note Text: Chief Complaint Patient presents with: Physical HPI Reny Gonzales is a 44 year old male who presents here today for Physical. Patient with hx of hyperlipidemia, psoriasis, allergies, and those as below. Patient has been doing well. No new issues or concerns. Allergies managed by taking radha. Past medical history, appointments, medications, allergies reviewed. Previous Medical History PAST MEDICAL HISTORY Diagnosis Date Allergic rhinitis 08/16/2015 Mixed hyperlipidemia 08/16/2015 Psoriasis 08/20/2018 Well adult exam 06/15/2021 Last done: 06/15/2021 Previous Surgical History PAST SURGICAL HISTORY Procedure Laterality Date APPENDECTOMY 01/09/2020 PAST SURGICAL HISTORY OF wire broken jaw Family History FAMILY HISTORY Problem Relation Age of Onset Lipids Mother 2018 Hypertension Father Lipids Father Lipids Brother Lipids Brother Breast Cancer Maternal Grandmother Prostate Cancer No Family History Colon Cancer No Family History Ovarian cancer No Family History Patient Allergies ALLERGIES Allergen Reactions Contrast Dye [Iodin* Hives Current Medications Current Outpatient Medications on File Prior to Visit Medication Sig simvastatin (ZOCOR) 40 mg tablet Take 0.5 tablets by mouth daily at bedtime. fluticasone (FLONASE) 50 mcg/actuation nasal spray Use 2 Sprays in each nostril once daily. Rinse mouth after use. FEXOFENADINE HCL (RADHA ORAL) Take by mouth as directed. MULTIVIT-MINERALS/FERROUS FUM (MULTI VITAMIN ORAL) Take by mouth once daily. No current facility-administered medications on file prior to visit. Social History Social History Tobacco Use Smoking status: Never Smokeless tobacco: Never Vaping Use Vaping status: Never Used Substance Use Topics Alcohol use: Yes Alcohol/week: 3.0 standard drinks of alcohol Types: 3 Cans of beer per week Comment: occasionally (beer or liquor) Drug use: No Review of Symptoms REVIEW OF SYSTEMS GENERAL: No weight loss, malaise or fevers HEENT: Negative for frequent or significant headaches, No changes in hearing or vision, no nose bleeds or other nasal problems NECK: Negative for lumps, goiter, pain and significant neck swelling RESPIRATORY: Negative for cough, hemoptysis, wheezing, COPD, dyspnea or shortness of breath CARDIOVASCULAR: Negative for chest pain, leg swelling, hypertension, CHF or palpitations GI: No nausea, vomiting, or diarrhea and No heartburn or reflux symptoms : No history of dysuria, frequency or blood MUSCULOSKELETAL: Negative for joint pain or swelling, back pain or muscle pain SKIN: Negative for lesions, rash, and itching PSYCH: Negative for sleep disturbance, mood disorder and recent psychosocial stressors HEMATOLOGY/LYMPHOLOGY: Negative for prolonged bleeding, bruising easily or swollen nodes ENDOCRINE: Negative for cold or heat intolerance, polyuria, polydipsia and goiter NEURO: No history of headaches, syncope, paralysis, seizures or tremors EXAM: BP 124/90 Pulse 70 Resp 16 Wt 86.2 kg (190 lb) BMI 26.88 kg/m? BP 122/82 Pulse 70 Resp 16 Wt 86.2 kg (190 lb) BMI 26.88 kg/m? Last 5 Encounter Wt Readings: Date: Wt: 07/09/2024 86.2 kg (190 lb) 07/01/2024 87.7 kg (193 lb 5.5 oz) 06/21/2024 87.4 kg (192 lb 10.9 oz) 07/25/2023 88.5 kg (195 lb) 07/04/2023 86.2 kg (190 lb) General Appearance: Well appearing, alert, in no acute distress, well-hydrated, well nourished. and Overweight. Skin: Skin color, texture, turgor normal, no suspicious rashes or lesions. Head: Normocephalic, no masses, lesions, tenderness or abnormalities. Eyes: Anicteric sclera. Pupils are equally round and reactive to light. Extraocular movements are intact. . Ears: External ears, TM's normal, canals clear. Nose/Sinuses: Nares normal, septum midline, mucosa normal, no drainage or sinus tenderness. Oropharynx: Lips, mucosa, and tongue normal, teeth and gums normal, oropharynx normal. Neck: Supple, no adenopathy; thyroid symmetric, normal size, no bruits. Lungs: Lungs clear to auscultation. No wheezing, rhonchi, rales.. Heart: RRR without murmur, gallop, or rubs. No ectopy. Abdomen: Normal abdominal exam, Abdomen soft, non-tender. Bowel sounds normal. No masses, organomegaly. Extremities: No deformities, edema, skin discoloration, clubbing or cyanosis. Good capillary refill. . Musculoskeletal: Spine range of motion normal. Muscular strength intact, No joint swelling, deformity, or tenderness. Peripheral Pulses: Normal. Neurologic: Gait normal. Reflexes normal and symmetric. Sensation to light touch and crainal nerves 2-12 intact.. Genitalia: Normal, Penis normal. No urethral discharge. Scrotum normal to palpation. No hernia.. Health Maintenance List Depression Screening Never done An (more content not included)... [facility] 07-01-2024 History of Presen t illness Narrative Radiology Service Progress Note PATIENT NAME: Reny Gonzales DATE OF SERVICE: July 01, 2024 TIME: 5:21 PM PATIENT IDENTITY VERIFICATION COMPLETED USING TWO (2) IDENTIFIERS: Name and Date of confirmed by patient verbally. FALL SCREENING: Has the patient had 2 falls in the last year or 1 fall with injury or currently using an Ambulatory Assistive Device (Walker, Cane, Wheelchair, Crutches, etc.)? No PATIENT GENDER DATA: Male PATIENT RELEVANT IMPLANT DATA REVIEWED: Not Applicable PATIENT PRESENTS WITH AN IMPLANTABLE OR ATTACHED FRONT DESK AGENT: No RADIOLOGY DEPARTMENT: General X-ray: Exam(s) Completed: Upper Extremity X-Ray(s): Fingers/Thumb, left PERIPHERAL IV DATA: Not applicable SIGNED BY: RT Sergey(Nell) July 01, 2024 5:21 PM documented in this encounter [facility] 07-01-2024 Note HNO ID: [id number] Author: OKSANA FIGUEROA RT(R) Service: Radiology Author Type: Technologist Type: Progress Notes Filed: 07/01/2024 17:32 Note Text: Radiology Service Progress Note PATIENT NAME: Reny Gonzales DATE OF SERVICE: July 01, 2024 TIME: 5:21 PM PATIENT IDENTITY VERIFICATION COMPLETED USING TWO (2) IDENTIFIERS: Name and Date of confirmed by patient verbally. FALL SCREENING: Has the patient had 2 falls in the last year or 1 fall with injury or currently using an Ambulatory Assistive Device (Walker, Cane, Wheelchair, Crutches, etc.)? No PATIENT GENDER DATA: Male PATIENT RELEVANT IMPLANT DATA REVIEWED: Not Applicable PATIENT PRESENTS WITH AN IMPLANTABLE OR ATTACHED FRONT DESK AGENT: No RADIOLOGY DEPARTMENT: General X-ray: Exam(s) Completed: Upper Extremity X-Ray(s): Fingers/Thumb, left PERIPHERAL IV DATA: Not applicable SIGNED BY: RT Sergey(R) July 01, 2024 5:[address] [facility] 07-01-2024 Note HNO ID: [id number] Author: AMINTA VILLARREAL APRN.ELEMENTARY MATH T[employer]OR Service: ? Author Type: Nurse Practitioner Type: Progress Notes Filed: 07/01/2024 18:30 Note Text: Subjective Patient came in with complaints of possible finger infection. Patient says he cut it a few days ago. Said that now it appears redness and swelling. Denies any fever chills nausea vomiting. Denies any pain in the area. Is able to bend the finger. The history is provided by the patient. No automotive parts interpreter was used. Review of Systems Constitutional: Negative. Skin: Negative. Objective Physical Exam Constitutional: Appearance: Normal appearance. Pulmonary: Effort: Pulmonary effort is normal. Musculoskeletal: Hands: Comments: Blue area blister Red area missling nail with scabbing. sLight redness around it. No drainage noted Neurological: Mental Status: He is alert. PAST MEDICAL HISTORY Diagnosis Date Allergic rhinitis 08/16/2015 Mixed hyperlipidemia 08/16/2015 Psoriasis 08/20/2018 Well adult exam 06/15/2021 Last done: 06/15/2021 PAST SURGICAL HISTORY Procedure Laterality Date APPENDECTOMY 01/09/2020 PAST SURGICAL HISTORY OF wire broken jaw ALLERGIES Contrast Dye [Iodine] MEDICATIONS simvastatin (ZOCOR) 40 mg tablet Take 0.5 tablets by mouth daily at bedtime. fluticasone (FLONASE) 50 mcg/actuation nasal spray Use 2 Sprays in each nostril once daily. Rinse mouth after use. FEXOFENADINE HCL (RADHA ORAL) Take by mouth as directed. MULTIVIT-MINERALS/FERROUS FUM (MULTI VITAMIN ORAL) Take by mouth once daily. doxycycline monohydrate 100 mg tablet Take 1 tablet by mouth two times a day for 7 days. FAMILY HISTORY Problem Relation Age of Onset Lipids Mother MVA 2018 Hypertension Father Lipids Father Lipids Brother Lipids Brother Breast Cancer Maternal Grandmother Prostate Cancer No Family History Colon Cancer No Family History Ovarian cancer No Family History Social History Tobacco Use Smoking status: Never Smokeless tobacco: Never Vaping Use Vaping status: Never Used Substance Use Topics Alcohol use: Yes Alcohol/week: 3.0 standard drinks of alcohol Types: 3 Cans of beer per week Comment: occasionally (beer or liquor) Drug use: No ASSESSMENT/PLAN: 1. Swelling - ICD9: 782.3, ICD10: R60.9 (primary diagnosis) - XR DIGIT GENERAL 3V FRONTAL/LAT/OBL LEFT - neg 2. Skin infection - ICD9: 686.9, ICD10: L08.9 - DOXYCYCLINE MONOHYDRATE 100 MG TABLET Stated about proper use of medication and supportive therapies. Patient will follow-up if signs and symptoms seem to be getting worse not better. Patient agreeable to care plan. Aminta Villarreal APRN.[facility] 07-01-2024 History of Presen t illness Narrative Images from the original note were not included. Subjective Patient came in with complaints of possible finger infection. Patient says he cut it a few days ago. Said that now it appears redness and swelling. Denies any fever chills nausea vomiting. Denies any pain in the area. Is able to bend the finger. The history is provided by the patient. No automotive parts interpreter was used. Review of Systems Constitutional: Negative. Skin: Negative. Objective Physical Exam Constitutional: Appearance: Normal appearance. Pulmonary: Effort: Pulmonary effort is normal. Musculoskeletal: Hands: Comments: Blue area blister Red area missling nail with scabbing. sLight redness around it. No drainage noted Neurological: Mental Status: He is alert. PAST MEDICAL HISTORY Diagnosis Date Allergic rhinitis 08/16/2015 Mixed hyperlipidemia 08/16/2015 Psoriasis 08/20/2018 Well adult exam 06/15/2021 Last done: 06/15/2021 PAST SURGICAL HISTORY Procedure Laterality Date APPENDECTOMY 01/09/2020 PAST SURGICAL HISTORY OF wire broken jaw ALLERGIES Contrast Dye [Iodine] MEDICATIONS simvastatin (ZOCOR) 40 mg tablet Take 0.5 tablets by mouth daily at bedtime. fluticasone (FLONASE) 50 mcg/actuation nasal spray Use 2 Sprays in each nostril once daily. Rinse mouth after use. FEXOFENADINE HCL (RADHA ORAL) Take by mouth as directed. MULTIVIT-MINERALS/FERROUS FUM (MULTI VITAMIN ORAL) Take by mouth once daily. doxycycline monohydrate 100 mg tablet Take 1 tablet by mouth two times a day for 7 days. FAMILY HISTORY Problem Relation Age of Onset Lipids Mother MVA 2018 Hypertension Father Lipids Father Lipids Brother Lipids Brother Breast Cancer Maternal Grandmother Prostate Cancer No Family History Colon Cancer No Family History Ovarian cancer No Family History Social History Tobacco Use Smoking status: Never Smokeless tobacco: Never Vaping Use Vaping status: Never Used Substance Use Topics Alcohol use: Yes Alcohol/week: 3.0 standard drinks of alcohol Types: 3 Cans of beer per week Comment: occasionally (beer or liquor) Drug use: No ASSESSMENT/PLAN: 1. Swelling - ICD9: 782.3, ICD10: R60.9 (primary diagnosis) - XR DIGIT GENERAL 3V FRONTAL/LAT/OBL LEFT - neg 2. Skin infection - ICD9: 686.9, ICD10: L08.9 - DOXYCYCLINE MONOHYDRATE 100 MG TABLET Stated about proper use of medication and supportive therapies. Patient will follow-up if signs and symptoms seem to be getting worse not better. Patient agreeable to care plan. Aminta Villarreal APRN.DAWIT documented in this encounter [facility] 06-21-2024 Note HNO ID: [id number] Author: LIN JERRY APRN.DAWIT Service: ? Author Type: Nurse Practitioner Type: Progress Notes Filed: 06/21/2024 13:21 Note Text: This note was created using NoteWriter. Subjective Reny Gonzales is a 44 year old male. HPI Patient was attempting to peel an orange when the iris slipped avulsing the distal third of the left fourth fingernail and tip of finger. His last tetanus shot was approximately 4 years ago. Patient was unable to stop the bleeding and presents for evaluation. Review of Systems Skin: Positive for wound. Objective BP 162/100 Pulse 78 Temp 37 ?C (98.6 ?F) Resp 16 Wt 87.4 kg (192 lb 10.9 oz) SpO2 97% BMI 27.26 kg/m? Physical Exam Vitals and nursing note reviewed. Constitutional: General: He is not in acute distress. Appearance: Normal appearance. He is not ill-appearing. HENT: Head: Normocephalic. Pulmonary: Effort: Pulmonary effort is normal. Musculoskeletal: General: Normal range of motion. Cervical back: Normal range of motion. Skin: General: Skin is warm and dry. Comments: Avulsion of the tip of the left fourth finger as noted in HPI Neurological: General: No focal deficit present. Mental Status: He is alert. Psychiatric: Mood and Affect: Mood normal. Behavior: Behavior normal. Assessment and Plan ASSESSMENT/PLAN: 1. Avulsion of skin of finger, initial encounter - ICD9: 883.0, ICD10: S61.209A Wound was cleaned with soap and water. Due to the type of injury no suturing was able to be performed. I did apply a nonadherent dressing with antibiotic ointment with Coban as a pressure wrap. Patient elevated his hand and I monitored him for approximately 20 minutes with no breakthrough bleeding and patient was discharged home with instructions to leave dressing in place until tomorrow and then once daily replace the dressing with a clean layer of antibiotic ointment and a fresh dressing and Coban. Lin Jerry APRN.[facility] 06-21-2024 History of Presen t illness Narrative This note was created using Picosunriter. Subjective Reny Gonzales is a 44 year old male. HPI Patient was attempting to peel an orange when the iris slipped avulsing the distal third of the left fourth fingernail and tip of finger. His last tetanus shot was approximately 4 years ago. Patient was unable to stop the bleeding and presents for evaluation. Review of Systems Skin: Positive for wound. Objective BP 162/100 Pulse 78 Temp 37 C (98.6 F) Resp 16 Wt 87.4 kg (192 lb 10.9 oz) SpO2 97% BMI 27.26 kg/m Physical Exam Vitals and nursing note reviewed. Constitutional: General: He is not in acute distress. Appearance: Normal appearance. He is not ill-appearing. HENT: Head: Normocephalic. Pulmonary: Effort: Pulmonary effort is normal. Musculoskeletal: General: Normal range of motion. Cervical back: Normal range of motion. Skin: General: Skin is warm and dry. Comments: Avulsion of the tip of the left fourth finger as noted in HPI Neurological: General: No focal deficit present. Mental Status: He is alert. Psychiatric: Mood and Affect: Mood normal. Behavior: Behavior normal. Assessment and Plan ASSESSMENT/PLAN: 1. Avulsion of skin of finger, initial encounter - ICD9: 883.0, ICD10: S61.209A Wound was cleaned with soap and water. Due to the type of injury no suturing was able to be performed. I did apply a nonadherent dressing with antibiotic ointment with Coban as a pressure wrap. Patient elevated his hand and I monitored him for approximately 20 minutes with no breakthrough bleeding and patient was discharged home with instructions to leave dressing in place until tomorrow and then once daily replace the dressing with a clean layer of antibiotic ointment and a fresh dressing and Coban. Lin Jerry APRN.DAWIT documented in this encounter [facility] 07-04-2023 Nurse Note Sunday BP average 139/91 60 147/90 144/94 132/88 137/87 144/95 137/90 Oumar Villarreal MA documented in this encounter [facility] 07-04-2023 History of Presen t illness Narrative Chief Complaint Patient presents with: Physical HPI Reny Gonzales is a 43 year old male who presents here today for Physical. Patient with hx of hyperlipidemia, psoriasis, allergies, and those as below. Allergies and psoriasis have been ok with no significant issues. Any new concerns today? None Any recent ER/hospital visits? None Past medical history, appointments, medications, allergies reviewed. Previous Medical History PAST MEDICAL HISTORY Diagnosis Date Allergic rhinitis 08/16/2015 Mixed hyperlipidemia 08/16/2015 Psoriasis 08/20/2018 Well adult exam 06/15/2021 Last done: 06/15/2021 Previous Surgical History PAST SURGICAL HISTORY Procedure Laterality Date APPENDECTOMY 01/09/2020 PAST SURGICAL HISTORY OF wire broken jaw Family History FAMILY HISTORY Problem Relation Age of Onset Hypertension Father Lipids Father Lipids Mother Lipids Brother Lipids Brother Patient Allergies ALLERGIES Allergen Reactions X Ray Dye [Other] Hives Environmental [Othe* Other: See Comments cats, dogs, cockroach, dust mites, mold, trees, grass, weeds, ragweed Current Medications Current Outpatient Medications on File Prior to Visit Medication Sig simvastatin (ZOCOR) 40 mg tablet Take 0.5 tablets by mouth daily at bedtime. fluticasone (FLONASE) 50 mcg/actuation nasal spray Use 2 Sprays in each nostril once daily. Rinse mouth after use. FEXOFENADINE HCL (RADHA ORAL) Take by mouth as directed. MULTIVIT-MINERALS/FERROUS FUM (MULTI VITAMIN ORAL) Take by mouth once daily. No current facility-administered medications on file prior to visit. Social History Social History Tobacco Use Smoking status: Never Smokeless tobacco: Never Vaping Use Vaping Use: Never used Substance Use Topics Alcohol use: Yes Alcohol/week: 3.0 standard drinks of alcohol Types: 3 Cans of beer per week Comment: occasionally (beer or liquor) Drug use: No Review of Symptoms REVIEW OF SYSTEMS GENERAL: No weight loss, malaise or fevers HEENT: Negative for frequent or significant headaches, No changes in hearing or vision, no nose bleeds or other nasal problems NECK: Negative for lumps, goiter, pain and significant neck swelling RESPIRATORY: Negative for cough, hemoptysis, wheezing, COPD, dyspnea or shortness of breath CARDIOVASCULAR: Negative for chest pain, leg swelling, hypertension, CHF or palpitations GI: No nausea, vomiting, or diarrhea and No heartburn or reflux symptoms : No history of dysuria, frequency or blood MUSCULOSKELETAL: Negative for joint pain or swelling, back pain or muscle pain SKIN: Negative for lesions, rash, and itching PSYCH: Negative for sleep disturbance, mood disorder and recent psychosocial stressors HEMATOLOGY/LYMPHOLOGY: Negative for prolonged bleeding, bruising easily or swollen nodes ENDOCRINE: Negative for cold or heat intolerance, polyuria, polydipsia and goiter NEURO: No history of headaches, syncope, paralysis, seizures or tremors EXAM: BP 142/96 (BP Site: Left Arm, BP Position: Sitting, BP Cuff Size: Regular Adult) Pulse 78 Resp 16 Ht 179.1 cm (5' 10.5) Wt 86.2 kg (190 lb) BMI 26.88 kg/m BP 139/91 Pulse 60 Resp 16 Ht 179.1 cm (5' 10.5) Wt 86.2 kg (190 lb) BMI 26.88 kg/m Last 5 Encounter Wt Readings: Date: Wt: 07/04/2023 86.2 kg (190 lb) 06/27/2022 86.2 kg (190 lb) 06/15/2021 83.9 kg (185 lb) 12/01/2020 83.5 kg (184 lb) 01/27/2020 83 kg (183 lb) Last 10 Encounter BP Readings: Date: BP: 07/04/2023 142/96 06/27/2022 102/82 06/15/2021 132/78 12/01/2020 116/72 01/27/2020 127/90 08/20/2018 136/86 09/25/2017 125/96 08/24/2017 130/70 08/16/2015 122/92 09/06/2012 116/84 General Appearance: Well appearing, alert, in no acute distress, well-hydrated, well nourished.. Skin: Skin color, texture, turgor normal, no suspicious rashes or lesions. Head: Normocephalic, no masses, lesions, tenderness or abnormalities. Eyes: Anicteric sclera. Pupils are equally round and reactive to light. Extraocular movements are intact. . Ears: External ears, TM's normal, canals clear. Nose/Sinuses: Nares normal, septum midline, mucosa normal, no drainage or sinus tenderness. Oropharynx: Lips, mucosa, and tongue normal, teeth and gums normal, oropharynx normal. Neck: Supple, no adenopathy; thyroid symmetric, normal size, no bruits. Lungs: Lungs clear to auscultation. No wheezing, rhonchi, rales.. Heart: RRR without murmur, gallop, or rubs. No ectopy. Abdomen: Normal abdominal exam, Abdomen soft, non-tender. Bowel sounds normal. No masses, organomegaly. Extremities: No deformities, edema, skin discoloration, clubbing or cyanosis. Good capillary refill. . Musculoskeletal: Spine range of motion normal. Muscular strength intact, No joint swelling, deformity, or tenderness. Peripheral Pulses: Normal. Neurologic: Gait normal. Reflexes normal and symmetric. Sensation grossly intact.. Genitalia: Normal, Penis normal. No urethral discharge. Scrotum normal to palpation. No hernia.. Health Maintenance List Hepatitis B Vaccine(1 of 3 - 3-dose series) Never done Depression Assessment due on 07/30/2022 Influenza Vaccine(1) due on 03/30/2023 Covid-19 Vaccine( season) due on 03/30/2023 Lipid Screening due on 06/20/2027 DTaP,Tdap,Td Vaccine(3 - Td or Tdap) due on 01/26/2030 HPV Vaccine Aged Out Hepatitis C Screening Discontinued HIV Screening Discontinued Data reviewed A/P ASSESSMENT/PLAN: 1. Well adult exam - ICD9: V70.0, ICD10: Z00.00 (primary diagnosis) - Counseled on healthy diet and regular exercise - Follow up for annual exam in one year Check - HGB A1C 2. Mixed hyperlipidemia - ICD9: 272.2, ICD10: E78.2 - await labs. - Continue current medications - Counseled on healthy diet and regular exercise Check - COMP METABOLIC PANEL - URINALYSIS, WITH MICROSCOPIC - LIPID PANEL, NONFASTING 3. Allergic rhinitis, unspecified seasonality, unspecified trigger - ICD9: 477.9, ICD10: J30.9 - stable with Tx. No changes. 4. Psoriasis - ICD9: 696.1, ICD10: L40.9 - stable 5. Encounter for screening for diabetes mellitus - ICD9: V77.1, ICD10: Z13.1 Check - HGB A1C 6. Elevated blood pressure reading without diagnosis of hypertension - ICD9: 796.2, ICD10: R03.0 - Encouraged dietary sodium restriction/DASH diet - Recommended regular aerobic exercise. - Recommend home blood pressure monitoring, to bring results in on next visit - Goal of BP <130/80 F/u 3 weeks BP check F/u in a year for WAE or sooner if needed. Khloe Salazar MD documented in this encounter [facility] Evaluation note Diagnosis Well adult exam- Primary Routine general medical examination at a health care facility Mixed hyperlipidemia Allergic rhinitis, unspecified seasonality, unspecified trigger Psoriasis Other psoriasis Encounter for screening for diabetes mellitus Screening for diabetes mellitus Elevated blood pressure reading without diagnosis of hypertension [facility] Diagnosis Avulsion of skin of finger, initial encounter- Primary documented in this encounter [facility] note* Diagnosis Swelling- Primary Edema Skin infection Unspecified local infection of skin and subcutaneous tissue Swelling Edema [facility] Diagnosis Swelling Edema [facility]* Diagnosis Elevated LFTs- Primary Other abnormal blood chemistry Hypercalcemia documented in this encounter [facility] note* Diagnosis Elevated LFTs- Primary Other abnormal blood chemistry [facility]* Diagnosis Screening for colon cancer- Primary Special screening for malignant neoplasms, colon documented in this encounter [facility] for referral (narrative)* Diagnostic Procedure Only (Urgent) - Closed Specialty Diagnoses / Procedures Referred By Contac t Referred To Contact XR IMAGING Diagnoses Swelling Procedures XR DIGIT GENERAL 3V FRONTAL/LAT/OBL LEFT RADEX FINGR MINIMUM 2 VIEWS Aminta Villarreal APRN.ELEMENTARY MATH TUTOR [address] [place] [address] [place] [address] Referral ID Status Reason Start Date Expiration Date V isits Requested Visits Authorized [id number] Closed Auto-Generate d Referral 07/01/2024 07/31/2025 1 1 [facility] for referral (narrative)* Diagnostic Procedure Only (Urgent) - Closed Specialty Diagnoses / Procedures Referred By Contac t Referred To Contact XR IMAGING Diagnoses Swelling Procedures XR DIGIT GENERAL 3V FRONTAL/LAT/OBL LEFT RADEX FINGR MINIMUM 2 VIEWS Aminta Villarreal APRN.ELEMENTARY MATH TUTOR [address] [place] [address] [place] [address] Referral ID Status Reason Start Date Expiration Date V isits Requested Visits Authorized [id number] Closed Auto-Generate d Referral 07/01/2024 07/31/2025 1 1 [facility] for visit Narrative* Diagnostic Procedure Only (Urgent) - Closed Specialty Diagnoses / Procedures Referred By Contac t Referred To Contact XR IMAGING Diagnoses Swelling Procedures XR DIGIT GENERAL 3V FRONTAL/LAT/OBL LEFT RADEX FINGR MINIMUM 2 VIEWS Aminta Villarreal APRN.ELEMENTARY MATH TUTOR [address] [place] [address] [place] [address] Referral ID Status Reason Start Date Expiration Date V isits Requested Visits Authorized [id number] Closed Auto-Generate d Referral 07/01/2024 07/31/2025 1 1 [facility] Summary Purpose Family History No Family History Records FoundNo Family History Records Found Advance Directives No Advanced Directives Records FoundNo Advanced Directives Records Found Additional Source Comments Source Comments (unrecognize d section and content) In the event this informatio n is protected by the Federal Confidentiality of Alcohol and Drug Abuse Patient Records regulations: The Federal rules restrict any use of the information to criminally investigate or prosecute any alcohol or drug abuse patient.[facility] the event this information is protected by the Federal Confidentiality of Alcohol and Drug Abuse Patient Records regulations: The Federal rules restrict any use of the information to criminally investigate or prosecute any alcohol or drug abuse patient.[facility] the event this information is protected by the Federal Confidentiality of Alcohol and Drug Abuse Patient Records regulations: The Federal rules restrict any use of the information to criminally investigate or prosecute any alcohol or drug abuse patient.[facility] the event this information is protected by the Federal Confidentiality of Alcohol and Drug Abuse Patient Records regulations: The Federal rules restrict any use of the information to criminally investigate or prosecute any alcohol or drug abuse patient.[facility] the event this information is protected by the Federal Confidentiality of Alcohol and Drug Abuse Patient Records regulations: The Federal rules restrict any use of the information to criminally investigate or prosecute any alcohol or drug abuse patient.[facility] the event this information is protected by the Federal Confidentiality of Alcohol and Drug Abuse Patient Records regulations: The Federal rules restrict any use of the information to criminally investigate or prosecute any alcohol or drug abuse patient.[facility] the event this information is protected by the Federal Confidentiality of Alcohol and Drug Abuse Patient Records regulations: The Federal rules restrict any use of the information to criminally investigate or prosecute any alcohol or drug abuse patient.[facility] the event this information is protected by the Federal Confidentiality of Alcohol and Drug Abuse Patient Records regulations: The Federal rules restrict any use of the information to criminally investigate or prosecute any alcohol or drug abuse patient.[facility] the event this information is protected by the Federal Confidentiality of Alcohol and Drug Abuse Patient Records regulations: The Federal rules restrict any use of the information to criminally investigate or prosecute any alcohol or drug abuse patient.[facility] Reason for Visit (unrecogniz ed section and content) Reason Comments Physical Reason Comments Laceration x 1 hour left ring f efra, peeling orange with iris Reason Comments Finger Injury left ring finger see n on 06/21 blister formation x 3-4 days Reason Comments Results Reason Onset Date Comments Results 10/20/2024 Reason Comments Consult Referral for colonoscopy Reason Comments Orders Pt requesting to Fax to Dr Humphrey @ [facility] Care Teams (unrecognized sec tion and content) Poker In Relationship Specialty Start Date End Date Khloe Salazar MD [address] [place] [address] PCP - General Family Medicine 12/01/20 Poker In Relationship Specialty Start Date End Date Khloe Salazar MD [address] [place] [address] PCP - General Family Medicine 12/01/20 Poker In Relationship Specialty Start Date End Date Khloe Salazar MD [address] [place] [address] PCP - General Family Medicine 12/01/20 Poker In Relationship Specialty Start Date End Date Khloe Salazar MD [address] [place] [address] PCP - General Family Medicine 12/01/20 Poker In Relationship Specialty Start Date End Date Khloe Salazar MD [address] [place] [address] PCP - General Family Medicine 12/01/20 Nataliia More APRN.ELEMENTARY MATH TUTOR [address] [place] [address] [facility] 07/05/24 Renate Camara PA-C [address] [place] [address] [facility] 07/05/24 Poker In Relationship Specialty Start Date End Date Khloe Salazar MD [address] [place] [address] PCP - General Family Medicine 12/01/20 Nataliia More APRN.ELEMENTARY MATH TUTOR [address] [place] [address] [facility] 07/05/24 Renate Camara PA-C [address] [facility] [place] [address] [employer] [facility] 07/05/24 Poker In Relationship Specialty Start Date End Date Khloe Salazar MD [address] [facility] [place] [address] PCP - General Family Medicine 12/01/20 Nataliia More APRN.ELEMENTARY MATH TUTOR [address] [place] [address] [facility] 07/05/24 Renate Camara PA-C [address] [place] [address] [facility] Poker In Relationship Specialty Start Date End Date Khloe Salazar MD [address] [place] [address] PCP - General Family Medicine 12/01/20 Nataliia More APRN.ELEMENTARY MATH TUTOR [address] [place] [address] [facility] 12/29/24 Renate Camara PA-C [address] [place] [address] [facility] 12/29/24 Poker In Relationship Specialty Start Date End Date Khloe Salazar MD [address] [facility] [place] [address] PCP - General Family Medicine 12/01/20 Nataliia More APRN.ELEMENTARY MATH TUTOR [facility] [place] [address] [employer] [facility] 12/29/24 Renate Camara PA-C [address] [facility] [place] [address] [facility] 12/29/24 (unrecognized sect ion and content) No Status Records FoundNo Status Records Found INFORMATION SOURCE (unrecogn ized section and content) DATE CREATED AUTHOR 01/16/[address] [facility] DATE CREATED AUTHOR AUTHOR'S ORGANIZ ATION 03/16/2025 [facility] FOR RECORDS PERTAINING TO PATIENTS WHO ARE OR HAVE BEEN ENROLLED IN A CHEMICAL DEPENDENCY/SUBSTANCEABUSE PROGRAM, SOME INFORMATION MAY BE OMITTED. This clinical summary was aggregated from multiple sources. Caution should be exercised in using it in the provision of clinical care. This summary normalizes information from multiple sources, and as a consequence, information in this document may materially change the coding, format and clinical context of patient data. In addition, data may be omitted in some cases. CLINICAL DECISIONS SHOULD BE BASED ON THE PRIMARY CLINICAL RECORDS. [facility]. provides no warranty or guarantee of the accuracy or completeness of information in this document.
[2025-03-18] MEDS: Lactated Ringers 1,000 ML 15 ML IV (06:34)
--- NOTE | 2025-03-18 06:34 | PCM.HP.STD ---
[facility] - General General Date of Admission: 03/18/25 Date of Service: 03/18/25 Chief Complaint: Screening colonoscopy HPI Narrative RENY DURBIN, is a 45 M who presents today for screening colonoscopy. He is about a colonoscopy in the past. He does have a family history of colon cancer. He does not take any medicines on daily basis except for simvastatin. [facility] Medical History Wears contact lenses Wears glasses High cholesterol Home Medications ?Medication ?Instructions ?Recorded ?Last Taken ?Type fexofenadine 60 mg tablet 60 mg PO DAILY 01/09/20 03/16/25 History multivitamin 1 ea PO DAILY 01/09/20 03/16/25 History simvastatin 40 mg tablet 40 mg PO QHS 01/09/20 03/16/25 History Allergy/AdvReac Type Severity Reaction Status Date / Time Iodinated Contrast Media Allergy Hives Verified 03/18/25 06:27 (CONTRASTS) Surgical History History of appendectomy Social History Smoking Status: Never smoker ROS Constitutional Constitutional: Denies fatigue, fever(s), poor appetite, weight gain or weight loss Gastrointestinal Gastrointestinal: Denies belching, bloating, change in bowel habits, change in stool character, chewing difficulty, coffee ground emesis, constipation, cramping, diarrhea, dyspepsia, dysphagia, early satiety, excessive flatus, fecal incontinence, heartburn, hematemesis, hematochezia, hemorrhoids, loose stools, melena, nausea, odynophagia, rectal bleeding, tenesmus, vomiting or weight changes Physical Exam Const alert, oriented x3, no apparent distress and healthy appearing General Appearance: cooperative GI normal to inspection, nondistended, normoactive bowel sounds, soft to palpation, non-tender and non-distended Percussion: normal to percussion Rectal Exam: deferred Assessment & Plan Assessment/Plan (1) Encounter for screening colonoscopy: PLAN: 45-year-old gentleman comes in for screening colonoscopy. He was explained alternatives, risk and benefits include not withstanding bleeding, infection, sepsis, perforation, need for surgery . He will have an ASA of 3.
--- NOTE | 2025-03-18 06:56 | PCM.PRE.AN2 ---
ASA Classification* ASA Classification ASA Classification: 1 Assessment & Plan Anesthesia* Anesthesia Assessment Anesthesia Assessment: Discussed sedation and/or anesthesia options, risks, benefits, and alternatives with patient/parents/legal guardian/POA. Questions invited. The patient/parents/legal guardian/POA seems to understand and agrees to proceed with anesthesia plan. Reviewed the physical assessment, medical history, allergy history and patient home medications list prior to surgery/procedure/anesthetic and documented any changes. Performed airway and anesthesia risk assessments. Anesthesia Type Anesthesia Type: MAC History Source History Obtained from:: Patient and Chart Anesthesia Focused Assessment* Temperature: 97.6 F Pulse Rate: 57 Blood Pressure: 140/96 Respiratory Rate: 16 Pulse Ox: 99 Oxygen Delivery Method: Room Air Airway Assessment Mouth opens: >3 cm Mallampati Score: II Teeth Condition: Caps/Crowns (Patient has tooth number 8 capped. It is tight.) Neck Range of motion (ROM): Full ROM Labs Anesthesia Preop lab: CBC WBC 12.8 K/mm3 (4.4-11.0) H 01/09/20 18:50 01/09/20 RBC 4.86 M/mm3 (4.6-6.2) 01/09/20 18:50 01/09/20 Hgb 15.1 g/dL (13.0-16.5) 01/09/20 18:50 01/09/20 Hct 45.3 % (40-54) 01/09/20 18:50 01/09/20 Plt Count 193 K/mm3 (150-450) 01/09/20 18:50 01/09/20 CHEMISTRY Potassium 4.1 mmol/L (3.5-5.1) 01/09/20 18:50 01/09/20 Sodium 140 mmol/L (136-145) 01/09/20 18:50 01/09/20 BUN 15 mg/dL (7-18) 01/09/20 18:50 01/09/20 Creatinine 0.89 mg/dL (0.70-1.30) 01/09/20 18:50 01/09/20 Glucose 95 mg/dL (74-106) 01/09/20 18:50 01/09/20 COAG Pre-Assessment Diagnosis/Proposed Procedure Planned Operative Procedure(s): COLONOSCOPY Anesthesia History Anesthesia History - spanish moss picker: Anesthesia History - spanish moss picker Hx Hospitalization No 03/17/25 08:49 Any Problems With Anesthesia No 03/17/25 08:49 Cholinesterase deficiency No 03/17/25 08:49 You/Your Family Experience No 03/17/25 08:49 fever (hyperthermia) with Relationship Recent Exposure to Contagious No 03/18/25 06:29 Disease Does patient have nerve No 03/17/25 08:49 stimulator Patient instructed to have device shut off --Does patient have Pacemaker No 03/18/25 06:29 or ICD? When Was Last Pacemaker Check QUESTION #4 FULL TEXT: You/Your Family Experience fever (hyperthermia) with Anesthesia Last Oral Intake Last Oral intake: Last Oral Intake NPO since 03:30 03/18/25 06:29 Meds taken in AM with sips of water? Meds patient instructed to take am of surgery Any additional information?: Yes NPO since: 03:45 (Patient finished prep at 3:45 AM.) Meds taken in AM with sips of water?: No PONV PONV - spanish moss picker: PONV - spanish moss picker Female No 03/17/25 08:49 HX of Motion Sickness No 03/17/25 08:49 HX of N/V After Surgery No 03/17/25 08:49 Non-Smoker Yes 03/17/25 08:49 Duration of Surgery greater No 03/17/25 08:49 than 60 minutes Number of Risk Factors 1 03/17/25 08:49 PONV Score Low Risk 03/17/25 08:49 Height & Weight Height & Weight: Anesthesia: Height & Weight Height 5 ft 10 in 03/18/25 06:29 Weight: 85 kg 03/18/25 06:29 Body Mass Index (BMI) 26.9 03/18/25 06:29 Respiratory Assessment Respiratory Assessment - spanish moss picker: Respiratory Tract Infection Hx - spanish moss picker Hx Respiratory Tract Infection No 03/17/25 08:49 STOP Sleep Apnea STOP Sleep Apnea - spanish moss picker: STOP Sleep Apnea - spanish moss picker Hx Hypertension No 03/17/25 08:49 Hx Sleep Apnea No 03/17/25 08:49 CPAP BIPAP Do you snore loudly (louder Yes 03/17/25 08:49 than talking or can be heard Do you often feel tired/ No 03/17/25 08:49 fatigued/ sleepy during daytime? Has anyone observed you stop No 03/17/25 08:49 breathing during sleep? STOP Results Negative 03/17/25 08:49 QUESTION #5 FULL TEXT : Do you snore loudly (louder than talking or can be heard through closed doors)? Tobacco Use History Tobacco Use History - spanish moss picker: Tobacco Use History - spanish moss picker Tobacco Use Smoking Status Never smoker 03/17/25 08:49 Hx Tobacco Use No 03/17/25 08:49 Years Smoking Packs Smoked per Day Smoking Cessation Date was within the last 15 years Hx Smoking Cessation Date Hx Smoking Cessation Counseling Hematologic Medial History Hematologic Hx - spanish moss picker: Hematologic Medical Hx - academic affairs dean Hx of Blood Transfusion No 03/17/25 08:49 Hx of Transfusion in last 3 No 03/17/25 08:49 Months Date of Last Transfusion (if within last 3 months) Ever experience any problems No 03/17/25 08:49 with transfusion(s)? Specify any problems Hx of Preganancy in last 3 N/A 03/17/25 08:49 Months Nurse Filling Out Transfusion [id number] 03/17/25 08:49 & Questions: Date: 03/17/25 03/17/25 08:49 Time: 08:52 03/17/25 08:49 Patient unable to answer at this time (ie. confused, unrespo /Reproduction History /Reproductive History - spanish moss picker: /Reproductive Hx- spanish moss picker Hx Now Gestational Age (in weeks): EDC: Hx Hx Para Hx Section SAB Active Medications Active Medications: Current Medications Generic Name Dose Route Start Last Admin Trade Name Freq PRN Reason Stop Dose Admin Lactated Ringer's 1,000 mls @ 15 mls/hr 03/18/25 06:15 03/18/25 06:34 IV 15 mls/hr .Q48H SALIMA Administration PFSH Medical History Wears contact lenses Wears glasses High cholesterol Home Medications ?Medication ?Instructions ?Recorded ?Last Taken ?Type fexofenadine 60 mg tablet 60 mg PO DAILY 01/09/20 03/16/25 History multivitamin 1 ea PO DAILY 06/12/20 08/18/25 History simvastatin 40 mg tablet 40 mg PO QHS 01/09/20 03/16/25 History Allergy/AdvReac Type Severity Reaction Status Date / Time Iodinated Contrast Media Allergy Hives Verified 03/18/25 06:27 (CONTRASTS) Surgical History History of appendectomy Social History Smoking Status: Never smoker Review of Systems (Anesthesia) ROS Narrative System reviewed and no additional complaints, except as documented.
--- NOTE | 2025-03-18 07:00 | COLBX_PTH ---
PATIENT: RENY DURBIN LOC: EN U#:[id number] AGE/SX: 45/M ROOM: RE03/18/[address]: Dr. Zaire Humphrey DO : 1980 BED: DIS: 03/18/2025 SPEC #: [id number] RECD: 03/18/25 09:10 STATUS: LUCERO REVel #: [id number] AMIRA: 03/18/25 07:[address]: Zaire Humphrey DEPT: SURGICAL PATHOLOGY RECD BY: Rafi Chacko ENTERED: 03/18/25 10:22 SP TYPE: COLON BX OT DR: Dr. Janes Desai MD Tissues: A - Rectum, NOS Procedures: Surgery Specimen Level IV HEADER OPERATION: Colonoscopy with biopsy PRE-OP DIAGNOSIS: Encounter for screening colonoscopy TISSUE SUBMITTED: A- Rectal polyp biopsy MICROSCOPIC DIAGNOSIS A. Rectum, polyp, biopsy: Superficial hyperplastic crypt change. Mucosal lymphoid aggregates, favor reactive. MICROSCOPIC DESCRIPTION Slides are reviewed. GROSS DESCRIPTION A. Received in fixative is one container labeled with the patient's name and designated Rectal polyp biopsy. The specimen consists of one irregular fragment of light gustafson soft tissue that measures 0.5 cm. The specimen is totally submitted in one cassette. SD 03/18/2025 CPT:31344
--- NOTE | 2025-03-18 07:27 | OP.PROVAT_ITS ---
03/18/2025 Janes Desai MD Re : Colonoscopy procedure for Colin Jassomilo Dear Dr. Desai This procedure was performed on Tuesday, March 18, 2025. My impressions and recommendations are as follows: Impressions : - One 4 mm polyp in the rectum, removed with a cold biopsy forceps. Resected and retrieved. - Diverticulosis in the recto-sigmoid colon and in the sigmoid colon. - The examination was otherwise normal on direct and retroflexion views. Recommendations : - Discharge patient to home. - Resume previous diet. - Continue present medications. - Await pathology results. - Repeat colonoscopy in 5 years for surveillance. My findings are described in the full procedure note, which is enclosed. If I can be of further assistance, please feel free to contact me at . Sincerely, Zaire Humphrey, 03/18/2025 7:26:59 AM This report has been signed electronically.
--- NOTE | 2025-03-18 07:27 | OP.COLON_ITS ---
Patient Name: Colin Gonzales Procedure Date: 03/18/2025 6:55 AM Date of : 1980 Age: 45 Procedure: Colonoscopy Indications: Screening for colorectal malignant neoplasm Providers: Zaire Humphrey DO Referring MD: Janes Desai MD Medicines: Monitored Anesthesia Care Patient Profile: This is a 45 year old male. Refer to note in patient chart for documentation of history and physical. Last Colonoscopy: none. The patient's first colonoscopy is today. Complications: No immediate complications. Procedure: Pre-Anesthesia Assessment: - Prior to the procedure, a History and Physical was performed, and patient medications and allergies were reviewed. The patient is competent. The risks and benefits of the procedure and the sedation options and risks were discussed with the patient. All questions were answered and informed consent was obtained. Patient identification and proposed procedure were verified by the physician in the pre-procedure area. Mental Status Examination: alert and oriented. Airway Examination: normal oropharyngeal airway and neck mobility. Respiratory Examination: clear to auscultation. CV Examination: normal. Prophylactic Antibiotics: The patient does not require prophylactic antibiotics. Prior Anticoagulants: The patient has taken no anticoagulant or antiplatelet agents except for NSAID medication. ASA Grade Assessment: II - A patient with mild systemic disease. After reviewing the risks and benefits, the patient was deemed in satisfactory condition to undergo the procedure. The anesthesia plan was to use monitored anesthesia care (MAC). Immediately prior to administration of medications, the patient was re-assessed for adequacy to receive sedatives. The heart rate, respiratory rate, oxygen saturations, blood pressure, adequacy of pulmonary ventilation, and response to care were monitored throughout the procedure. The physical status of the patient was re-assessed after the procedure. After I obtained informed consent, the scope was passed under direct vision. Throughout the procedure, the patient's blood pressure, pulse, and oxygen saturations were monitored continuously. The Colonoscope was introduced through the anus and advanced to the cecum, identified by appendiceal orifice and ileocecal valve. The colonoscopy was performed without difficulty. The patient tolerated the procedure well. The quality of the bowel preparation was adequate. The ileocecal valve, appendiceal orifice, and rectum were photographed. Scope In: 7:12:25 AM Scope Withdrawal Time 0 hours 7 minutes 35 seconds Scope Out: 7:22:51 AM Total Procedure Duration Time 0 hours 10 minutes 26 seconds Findings: The perianal and digital rectal examinations were normal. A 4 mm polyp was found in the rectum. The polyp was sessile. The polyp was removed with a cold biopsy forceps. Resection and retrieval were complete. Verification of patient identification for the specimen was done. Estimated blood loss was minimal. A few small-mouthed diverticula were found in the recto-sigmoid colon and sigmoid colon. The exam was otherwise without abnormality on direct and retroflexion views. Impression: - One 4 mm polyp in the rectum, removed with a cold biopsy forceps. Resected and retrieved. - Diverticulosis in the recto-sigmoid colon and in the sigmoid colon. - The examination was otherwise normal on direct and retroflexion views. Recommendation: - Discharge patient to home. - Resume previous diet. - Continue present medications. - Await pathology results. - Repeat colonoscopy in 5 years for surveillance. Procedure Code(s): --- Professional --- 28050, Colonoscopy, flexible; with biopsy, single or multiple CPT copyright 2021 [employer]. All rights reserved. The codes documented in this report are preliminary and upon personal injury attorney review may be revised to meet current compliance requirements. Zaire Humphrey DO 03/18/2025 7:26:59 AM This report has been signed electronically. Number of Addenda: 0 Note Initiated On: 03/18/2025 6:55 AM
--- NOTE | 2025-03-18 07:33 | PCM.POST.ANE ---
Anesthesia: Postop Eval I Current Vital Signs Temperature: 97.6 F Pulse Rate: 67 Blood Pressure: 119/74 Respiratory Rate: 16 Pulse Ox: 98 Oxygen Delivery Method: Room Air Assessment Airway patent: Yes Spontaneous unlabored respirations: Yes Mental status: Awake and Calm nausea: No Vomiting: No Anesthesia Complication: No Fluid Hydration Crystalloid volume administer (ml): 400 Total IV fluid infused: 400 Progress Note Anesthesia document: Postop Eval 1 completed: Yes
== END 2025-03-18 08:15 | disposition home or self-care (01) ==
LOC: EN 05:58 → AC 05:59
PROVIDERS: PCP Family Medicine; Referring Provider Family Medicine; Visit Provider Internal Medicine Gastroenterology
PROC: 0DJD8ZZ Inspection of Lower Intestinal Tract, Via Natural or Artificial Opening Endoscopic (ICD-10-PCS; CPT 45378; principal; 2025-03-18 06:55)
DX: Z12.11 Encounter for screening for malignant neoplasm of colon (principal); K57.30 Diverticulosis of large intestine without perforation or abscess without bleeding; K62.1 Rectal polyp; E78.00 Pure hypercholesterolemia, unspecified; Z80.0 Family history of malignant neoplasm of digestive organs; Z79.899 Other long term (current) drug therapy; Z90.49 Acquired absence of other specified parts of digestive tract
CPT/HCPCS: 45380; 88305; J2405